=== PATIENT | female | born 1975 | race Caucasian/White ===

== ENCOUNTER 2017-06-05 04:54 | Emergency (ER) | payer MEDICAID ==
[2017-06-05] MEDS ORDERED: Ketorolac 60 MG/2 ML SDV IM ONE (05:05)
[2017-06-05 05:13] VITALS: BP 148/76
--- NOTE | 2017-06-05 05:13 | EDM.PDOC ---
ED HPI GENERAL MEDICAL PROBLEM - General Stated Complaint: BACK PAIN,TROUBLE BREATHING Time Seen by Provider: 06/05/17 04:54 Source of Information: Reports: Patient, EMS, Family History Limitations: Reports: Physical Impairment - History of Present Illness INITIAL COMMENTS - FREE TEXT/NARRATIVE: 41 years old smoker, h/o spino bifida, H/O Fibromyalgia, acute bronchitis, came to the ed due t left lower back pain after a coughing spell. No direct trauma. Pt is able to ambulate, walked independently to the bath room. No N/V/D. No chest pain, no other acute medical issues. Temp 98.t BP 148/76 Onset: Today Onset Date: 06/05/17 Onset Time: 02:00 Duration: Hour(s): Location: Reports: Back Quality: Reports: Ache, Burning, Dull, Throbbing Severity: Moderate Improves with: Reports: Cold Therapy, Rest Worsens with: Reports: Movement Context: Reports: Other (coughing spell.) Associated Symptoms: Reports: Cough Left Middle Back Pain Score (Numeric/FACES): 8 - Related Data Allergies Allergy/AdvReac Type Severity Reaction Status Date / Time No Known Allergies Allergy Verified 06/05/17 05:47 Home Meds: Home Meds Albuterol [Proventil HFA] 2 inhalation ORAL.INH ASDIRECTED PRN 04/03/14 [History ] Dicyclomine [Bentyl] 20 mg PO TID 04/03/14 [History] Fluticasone Propionate [Flonase] 2 inhalation NS DAILY 04/03/14 [History] Folic Acid 1 mg PO DAILY 04/03/14 [History] Hydrochlorothiazide 12.5 mg PO DAILY 04/03/14 [History] Ibuprofen [Advil] 600 mg PO ASDIRECTED PRN 04/03/14 [History] Loratadine [Claritin] 10 mg PO DAILY 04/03/14 [History] Metaxalone 800 mg PO TID 04/03/14 [History] Naratriptan [Amerge] 2.5 mg PO ASDIRECTED PRN 04/03/14 [History] Omeprazole [Prilosec] 20 mg PO BID 04/03/14 [History] carBAMazepine [TEGretol XR] 400 mg PO BEDTIME 04/03/14 [History] carBAMazepine [Tegretol XR] 200 mg PO DAILY 04/03/14 [History] Simvastatin [Zocor] 10 mg PO BEDTIME 04/04/14 [History] Benzonatate [Tessalon Perles] 100 mg PO TID 06/05/17 [History] Meloxicam [Meloxicam] 15 mg PO DAILY 06/05/17 [History] Orphenadrine [Norflex] 100 mg PO BID PRN #20 tab.er 06/05/17 [Rx] Prednisone [IJD: predniSONE] 20 mg PO WITHBREAKFAST 06/05/17 [History] SitaGLIPtin [Januvia] 100 mg PO DAILY 06/05/17 [History] Social & Family History - Alcohol Use Days Per Week of Alcohol Use: 0 ED ROS GENERAL - Review of Systems Review Of Systems: See Below Constitutional: Reports: No Symptoms HEENT: Reports: No Symptoms Respiratory: Reports: Cough (occ dry cough) Cardiovascular: Reports: No Symptoms Endocrine: Reports: No Symptoms GI/Abdominal: Reports: No Symptoms : Reports: No Symptoms Musculoskeletal: Reports: No Symptoms Skin: Reports: No Symptoms Neurological: Reports: Other (h/o spinobifida ) Psychiatric: Reports: No Symptoms Hematologic/Lymphatic: Reports: No Symptoms Immunologic: Reports: No Symptoms ED EXAM,LOWER BACK PAIN/INJURY - Physical Exam Exam: See Below Exam Limited By: Physical Impairment General Appearance: Alert, WD/WN, Mild Distress, Obese Eye Exam: Bilateral Eye: Normal Inspection Ears: Normal External Exam Nose: Normal Inspection, Normal Mucosa Throat/Mouth: Normal Inspection, Normal Lips Head: Atraumatic, Normocephalic Neck: Normal Inspection, Supple, Non-Tender Respiratory/Chest: No Respiratory Distress, Lungs Clear, Normal Breath Sounds, No Accessory Muscle Use, Chest Non-Tender, Other (occ dry cough) Cardiovascular: Normal Peripheral Pulses, Regular Rate, Rhythm, No Edema GI/Abdominal: Normal Bowel Sounds, Soft, Non-Tender, No Abnormal Bruit (Female) Exam: Deferred Rectal (Female) Exam: Deferred Back Exam: Normal Inspection, Full Range of Motion, Muscle Spasm, Paraspinal Tenderness (left lumbar ) Extremities: Normal Inspection, Normal Range of Motion, Non-Tender Neurological: Alert, Normal Mood/Affect, CN II-XII Intact, Normal Gait, Oriented x 3, Other (spinobifida) Psychiatric: Normal Affect, Depressed Mood Skin Exam: Warm, Dry, Intact, Normal Color, No Rash Lymphatic: No Adenopathy Course - Vital Signs Text/Narrative:: 41 years old smoker, h/o spino bifida, H/O Fibromyalgia, acute bronchitis, came to the ed due t left lower back pain after a coughing spell. No direct trauma. Pt is able to ambulate, walked independently to the bath room. No N/V/D. No chest pain, no other acute medical issues. Temp 98.t BP 148/76 PE: Obese. lefy lower back spasm, dry cough UA: neg Impression: Asthma, left lower back spasm Tx: Toradol, Norflex and a duoneb Reexam: Pt felt 70% better and requested to be discharged. PlaN; D/C with instructions Last Recorded V/S: Last Vital Signs Temp 36.7 C 06/05/17 05:00 Pulse 101 H 06/05/17 05:00 Resp 18 06/05/17 05:00 BP 148/76 H 06/05/17 05:00 Pulse Ox 100 06/05/17 05:00 - Orders/Labs/Meds Orders: Active Orders 24 hr Category Date Time Status RT Aerosol Therapy [RC] ASDIRECTED Care 06/05/17 05:29 Active Ice Therapy [OM.PC] Routine Oth 06/05/17 05:28 Ordered Labs: Laboratory Tests 06/05/17 Range/Units 05:40 Urine Color Yellow (YELLOW) Urine Appearance Clear (CLEAR) Urine pH 7.0 H (5.0-6.5) Ur Specific [place] 1.005 L (1.010-1.025) Urine Protein Negative (NEGATIVE) mg/dL Urine Glucose (UA) Normal (NEGATIVE) mg/dL Urine Ketones Negative (NEGATIVE) mg/dL Urine Occult Blood Negative (NEGATIVE) Urine Nitrite Negative (NEGATIVE) Urine Bilirubin Negative (NEGATIVE) Urine Urobilinogen Normal (NEGATIVE) mg/dL Ur Leukocyte Esterase Negative (NEGATIVE) Urine RBC 0-5 (0) Urine WBC 0-5 (0) Ur Squamous Epith Cells Few H (NS,R,O) Urine Bacteria Few H (NS) Meds: Medications Discontinued Medications Generic Name Dose Route Start Last Admin Trade Name Freq PRN Reason Stop Dose Admin Albuterol/Ipratropium 3 ml 06/05/17 05:28 06/05/17 05:38 Duoneb 3.0-0.5 Mg/3 Ml NEB 06/05/17 05:29 3 ml ONETIME ONE Administration Ketorolac Tromethamine 60 mg 06/05/17 05:05 06/05/17 05:26 Toradol IM 06/05/17 05:06 60 mg ONETIME ONE Administration Orphenadrine Citrate 60 mg 06/05/17 05:15 06/05/17 05:28 Norflex IM 60 mg Q12H GERMAN Administration Departure - Departure Time of Disposition: 06:00 Disposition: Home, Self-Care 01 Condition: Good Clinical Impression: Spasm of back muscles Asthma Qualifiers: Asthma severity: mild intermittent Asthma complication type: uncomplicated Qualified Code(s): J45.20 - Mild intermittent asthma, uncomplicated - Discharge Information Prescriptions: Orphenadrine [Norflex] 100 mg PO BID PRN #20 tab.er PRN Reason: back spasm Referrals: Adrian Mosqueda MD [Primary Care Provider] - Forms: ED Department Discharge Additional Instructions: Please take your current meds, please take norflex and motrin for back pain, please quit tobacco use, please follow up, come back to the ed if your symptoms get worse acutely. - My Orders Last 24 Hours: My Active Orders 06/05/17 05:28 Ice Therapy [OM.PC] Routine 06/05/17 05:29 RT Aerosol Therapy [RC] ASDIRECTED - Assessment/Plan Last 24 Hours: My Active Orders 06/05/17 05:28 Ice Therapy [OM.PC] Routine 06/05/17 05:29 RT Aerosol Therapy [RC] ASDIRECTED
[2017-06-05] MEDS ORDERED: Albuterol/Ipratropium 3.0-0.5 MG/3 ML Neb Soln NEB ONE (05:28)
== END 2017-06-05 06:25 | disposition home or self-care (01) ==
LOC: FB.ED 04:54
DX: M62.830 Muscle spasm of back (principal); J45.20 Mild intermittent asthma, uncomplicated; Z79.84 Long term (current) use of oral hypoglycemic drugs; Z79.899 Other long term (current) drug therapy
CPT/HCPCS: 81001; 96372; 99283; J1885; J2360; J7620

== ENCOUNTER 2018-03-21 07:12 | Day surgery (SDC) | payer MEDICAID ==
[2018-03-21] MEDS ORDERED: Lactated Ringers 1,000 ML IV SCH (07:15)
[2018-03-21] MEDS ORDERED: Sodium Chloride 0.9% 10 ML Syringe FLUSH PRN (07:15)
[2018-03-21] MEDS ORDERED: Propofol 200 MG/20 ML SDV IV ONE (08:30)
[2018-03-21] MEDS ORDERED: Midazolam 1 MG/ML 2 ML SDV IV ONE (08:30)
--- NOTE | 2018-03-21 09:20 | PCM.OPNOTE ---
- General Post-Op/Procedure Note Date of Surgery/Procedure: 03/21/18 Operative Procedure(s): c scope with bx Findings: rectal polypsx2 Pre Op Diagnosis: hx of colon polyps Post-Op Diagnosis: rectal polypsx2 Anesthesia Technique: MAC Primary Surgeon: Ajit Torres Anesthesia Provider: Linda Ham Pathology: rectal polyp Complications: None Condition: Good Free Text/Narrative:: see dictation
--- NOTE | 2018-03-21 09:37 | OR ---
DATE OF OPERATION: 03/21/2018 SURGEON: Ajit Torres MD PROCEDURES PERFORMED: Colonoscopy with cold forceps biopsy. PREOPERATIVE DIAGNOSIS: Personal history of colon polyps. POSTOPERATIVE DIAGNOSIS: Hyperplastic rectal polyps. INDICATIONS FOR PROCEDURE: This is a 42-year-old white female who presents for a followup colonoscopy. She has a personal history of adenomatous colon polyps. She was offered and accepted same. DESCRIPTION OF OPERATION: After an excellent IV sedation was administered, digital rectal exam was performed. No marked abnormality was noted. The flexible colonoscope was inserted and advanced to the cecum without difficulty. The prep was excellent. The following findings were noted. Ascending colon, unremarkable. Transverse colon, unremarkable. Descending colon, unremarkable. Sigmoid, unremarkable. Rectum, several small hyperplastic-appearing rectal polyps, biopsied with cold biopsy forceps and sent for permanent. Colon was deflated. Scope was removed. The patient tolerated the procedure well. Results by letter. /[id number] /YEFRI
[2018-03-21 10:58] VITALS: BP 108/74
== END 2018-03-21 10:38 | disposition home or self-care (01) ==
LOC: FB.SDS 07:12
PROVIDERS: ATTEND Surgery
DX: Z12.11 Encounter for screening for malignant neoplasm of colon (principal); K62.1 Rectal polyp; I10 Essential (primary) hypertension; E11.9 Type 2 diabetes mellitus without complications; F17.210 Nicotine dependence, cigarettes, uncomplicated; H90.3 Sensorineural hearing loss, bilateral; K21.9 Gastro-esophageal reflux disease without esophagitis; F32.9 Major depressive disorder, single episode, unspecified; F41.9 Anxiety disorder, unspecified; G47.33 Obstructive sleep apnea (adult) (pediatric); Z86.010 Personal history of colon polyps; Z79.84 Long term (current) use of oral hypoglycemic drugs; Z79.899 Other long term (current) drug therapy
CPT/HCPCS: 45380; 82962; 88305; J2250; J2704; J7120

== ENCOUNTER 2021-08-17 12:59 | Inpatient (IN) | payer MEDICAID ==
[2021-08-17] MEDS ORDERED: Ondansetron 4 MG/2 ML SDV IVPUSH ONE (14:21)
[2021-08-17] MEDS ORDERED: Ketorolac 30 MG/ML SDV IVPUSH ONE (14:23)
[2021-08-17] MEDS ORDERED: Sodium Chloride 0.9% 1,000 ML IV ONE ×2 (14:23)
--- NOTE | 2021-08-17 16:49 | EDM.PDOC ---
ED HPI GENERAL MEDICAL PROBLEM - General Chief Complaint: Abdominal Pain Stated Complaint: R SIDE PAIN /L ARM NUMBNESS Time Seen by Provider: 08/17/21 13:20 Source of Information: Reports: Patient History Limitations: Reports: No Limitations - History of Present Illness INITIAL COMMENTS - FREE TEXT/NARRATIVE: c/o flu-like sxs x 1w pt lives with 22 yo dtr, both had COVID test done in clinic parking lot 4d ago, dtr positive, pt neg, altho pt is positive today pt works from home, has not worked in past 4d denies pain except right flank poor appetite, cough and fever, malaise, no myalgias, no FREITAS slight nausea at home, none now Right Abdomen Pain Score (Numeric/FACES): 7 - Related Data Allergies Allergy/AdvReac Type Severity Reaction Status Date / Time No Known Allergies Allergy Verified 08/17/21 13:18 Home Meds: Home Meds Albuterol [Proventil HFA] 2 inhalation INH Q4H PRN 04/03/14 [History] Dicyclomine [Bentyl] 20 mg PO TID 04/03/14 [History] Folic Acid 800 mcg PO DAILY 04/03/14 [History] Omeprazole [Prilosec] 20 mg PO BID 04/03/14 [History] carBAMazepine [TEGretol XR] 400 mg PO BEDTIME 04/03/14 [History] carBAMazepine [Tegretol XR] 200 mg PO DAILY 04/03/14 [History] hydroCHLOROthiazide [Hydrochlorothiazide] 25 mg PO DAILY 04/03/14 [History] Simvastatin [Zocor] 10 mg PO BEDTIME 04/04/14 [History] Cetirizine [ZyrTEC] 10 mg PO DAILY 03/20/18 [History] Pregabalin [Lyrica] 225 mg PO BID 03/20/18 [History] Budesonide/Formoterol Fumarate [Symbicort 160-4.5 Mcg Inhaler] 2 puff INH BID 08/17/21 [History] Tiotropium Beggs [Spiriva Respimat] 2 puff INH DAILY 08/17/21 [History] glipiZIDE [Glucotrol XL] 5 mg PO DAILY 08/17/21 [History] methocarbamoL [Methocarbamol] 500 mg PO TID 08/17/21 [History] Past Medical History HEENT History: Reports: Hard of Hearing, Impaired Vision Cardiovascular History: Reports: Hypertension Respiratory History: Reports: Bronchitis, Recurrent, Sleep Apnea Gastrointestinal History: Reports: Colon Polyp, GERD, Irritable Bowel Syndrome SUPPLY ASSISTANT History: Reports: Other SUPPLY ASSISTANT History: II PARA II Musculoskeletal History: Reports: Arthritis, Back Pain, Chronic, Fibromyalgia Neurological History: Reports: Headaches, Chronic, Seizure, Other (See Below) Other Neuro History: SPINA BIFIDA Psychiatric History: Reports: Anxiety, Depression Endocrine/Metabolic History: Reports: Diabetes, Type II Hematologic History: Reports: None Immunologic History: Reports: None Oncologic (Cancer) History: Reports: None Dermatologic History: Reports: None - Infectious Disease History Infectious Disease History: Reports: Chicken Pox - Past Surgical History HEENT Surgical History: Reports: Myringotomy w Tube(s), Naso-Sinus Surgery, Tonsillectomy GI Surgical History: Reports: Appendectomy, Colonoscopy Other GI Surgeries/Procedures: STATES HAS HAD SEVERAL COLONOSCOPIES Female Surgical History: Reports: Section, Hysterectomy Other Female Surgeries/Procedures: VAG HYST Musculoskeletal Surgical History: Reports: Carpal Tunnel, Other (See Below) Other Musculoskeletal Surgeries/Procedures:: LEFT BUNIONECTOMY Social & Family History - Family History GI: Reports: Colon Polyps Other GI Family History: FATHER WITH COLON POLYPS - Tobacco Use Tobacco Use Status *Q: Current Every Day Tobacco User Years of Tobacco use: 30 Packs/Tins Daily: 0.5 - Caffeine Use Caffeine Use: Reports: Coffee - Recreational Drug Use Recreational Drug Use: No ED ROS GENERAL - Review of Systems Review Of Systems: See Below Constitutional: Reports: Fever, Weakness, Decreased Appetite. Denies: Night Sweats, Diaphoresis HEENT: Reports: No Symptoms Respiratory: Reports: Shortness of Breath, Cough Cardiovascular: Reports: No Symptoms Endocrine: Reports: No Symptoms GI/Abdominal: Reports: No Symptoms : Reports: No Symptoms Musculoskeletal: Reports: No Symptoms Skin: Reports: No Symptoms Neurological: Reports: No Symptoms Psychiatric: Reports: No Symptoms Hematologic/Lymphatic: Reports: No Symptoms Immunologic: Reports: No Symptoms ED EXAM, GENERAL - Physical Exam Exam: See Below Exam Limited By: No Limitations General Appearance: Alert, WD/WN, Other (nontoxic, appears tired) Eye Exam: Bilateral Eye: EOMI, PERRL Ears: Hearing Grossly Normal Nose: Normal Inspection Throat/Mouth: Normal Inspection, Normal Lips, Normal Teeth, Normal Gums, Normal Oropharynx, Normal Voice, No Airway Compromise Head: Atraumatic, Normocephalic Neck: Normal Inspection, Supple, Non-Tender, Full Range of Motion. No: Lymphadenopathy (R), Lymphadenopathy (L) Respiratory/Chest: No Respiratory Distress, Lungs Clear, Normal Breath Sounds, No Accessory Muscle Use Cardiovascular: Regular Rate, Rhythm, No Edema, No JVD, No Murmur GI/Abdominal: Soft, Non-Tender, No Distention Back Exam: Normal Inspection, Full Range of Motion. No: CVA Tenderness (R), CVA Tenderness (L) Extremities: Normal Inspection, Non-Tender, No Pedal Edema Neurological: Alert, Oriented, CN II-XII Intact, Normal Cognition, No Motor/Sensory Deficits Psychiatric: Normal Affect, Normal Mood Skin Exam: Warm, Dry, Intact, Normal Color, No Rash Lymphatic: No Adenopathy Course - Vital Signs Last Recorded V/S: Last Vital Signs Temp 36.8 C 08/17/21 13:18 Pulse 95 08/17/21 13:18 Resp 16 08/17/21 13:18 BP 143/80 H 08/17/21 13:18 Pulse Ox 96 08/17/21 13:18 - Orders/Labs/Meds Orders: Active Orders 24 hr Category Date Time Status Admission Status [Patient Status] [ADT] Routine ADT 08/17/21 21:41 Ordered Abdomen 1V Flat [CR] Stat Exams 08/17/21 14:25 Taken CTA Runoff [CT] Stat Exams 08/17/21 17:45 Taken Chest 1V Frontal [CR] Stat Exams 08/17/21 14:24 Taken Sodium Chloride 0.9% [Normal Saline] 1,000 ml Med 08/17/21 21:45 Ordered IV ASDIRECTED Medication Orders Sodium Chloride (Normal Saline) 1,000 mls @ 250 mls/hr IV ASDIRECTED GERMAN Last Admin: 08/17/21 22:08 Dose: 250 mls/hr Documented by: BENJAMIN Labs: Laboratory Tests 08/17/21 08/17/21 08/17/21 Range/Units 14:16 15:15 15:15 WBC 14.3 H (3.0-10.3) x10-3/uL RBC 4.91 (3.60-5.20) x10(6)uL Hgb 14.5 (11.4-15.5) g/dL Hct 46.3 (34.2-48.2) % MCV 94.2 (76.7-100.5) fL MCH 29.4 (23.9-33.9) pg MCHC 31.3 L (31.9-34.8) g/dL RDW 12.8 (12.3-16.5) % Plt Count 282 (151-488) x10(3)uL MPV 7.8 (7.1-12.4) fL Neut % (Auto) 73.7 (30.8-76.2) % Lymph % (Auto) 15.2 L (18.4-52.1) % [place] % (Auto) 9.8 (4.4-15.7) % Eos % (Auto) 0.1 L (0.6-8.1) % Baso % (Auto) 1.2 (0.2-1.5) % Neut # (Auto) 10.5 H (1.5-6.3) x10-3/uL Lymph # (Auto) 2.2 (1.0-4.4) x10-3/uL [place] # (Auto) 1.4 H (0.3-1.0) x10-3/uL Eos # (Auto) 0.0 (0.0-0.8) x10-3/uL Baso # (Auto) 0.2 H (0.0-0.1) x10-3/uL PT (9.0-11.1) sec INR (1.00-1.24) APTT (24.4-33.2) SECONDS Sodium 135 (135-145) mmol/L Potassium 4.5 (3.5-5.3) mmol/L Chloride 96 L (100-110) mmol/L Carbon Dioxide 24 (21-32) mmol/L BUN 11 (7-18) mg/dL Creatinine 1.0 (0.55-1.02) mg/dL Est Cr Clr Drug Dosing 63.25 mL/min Estimated GFR (MDRD) 60 (>60) BUN/Creatinine Ratio 11.0 (9-20) Glucose 114 (80-116) mg/dL Calcium 8.3 L (8.6-10.2) mg/dL Total Bilirubin 0.7 (0.1-1.3) mg/dL AST 44 H (5-25) IU/L ALT 31 (12-36) U/L Alkaline Phosphatase 89 (56-112) IU/L C-Reactive Protein (0.5-0.9) mg/dL Total Protein 7.4 (6.0-8.0) g/dL Albumin 3.6 (3.5-5.2) g/dL Globulin 3.8 g/dL Albumin/Globulin Ratio 1.0 Urine Color (YELLOW) Urine Appearance (CLEAR) Urine pH (5.0-6.5) Ur Specific [place] (1.010-1.025) Urine Protein (NEGATIVE) mg/dL Urine Glucose (UA) (NORMAL) mg/dL Urine Ketones (NEGATIVE) mg/dL Urine Occult Blood (NEGATIVE) Urine Nitrite (NEGATIVE) Urine Bilirubin (NEGATIVE) Urine Urobilinogen (NEGATIVE) mg/dL Ur Leukocyte Esterase (NEGATIVE) Urine RBC (0-5) Urine WBC (0-5) Ur Squamous Epith Cells (NS,R,O) Urine Bacteria (NS) Urine Mucus (NS) SARS-CoV-2 RNA (TERESA) Positive H (NEGATIVE) 08/17/21 08/17/21 08/17/21 Range/Units 15:15 16:07 21:25 WBC (3.0-10.3) x10-3/uL RBC (3.60-5.20) x10(6)uL Hgb (11.4-15.5) g/dL Hct (34.2-48.2) % MCV (76.7-100.5) fL MCH (23.9-33.9) pg MCHC (31.9-34.8) g/dL RDW (12.3-16.5) % Plt Count (151-488) x10(3)uL MPV (7.1-12.4) fL Neut % (Auto) (30.8-76.2) % Lymph % (Auto) (18.4-52.1) % [place] % (Auto) (4.4-15.7) % Eos % (Auto) (0.6-8.1) % Baso % (Auto) (0.2-1.5) % Neut # (Auto) (1.5-6.3) x10-3/uL Lymph # (Auto) (1.0-4.4) x10-3/uL [place] # (Auto) (0.3-1.0) x10-3/uL Eos # (Auto) (0.0-0.8) x10-3/uL Baso # (Auto) (0.0-0.1) x10-3/uL PT 12.8 H (9.0-11.1) sec INR 1.20 (1.00-1.24) APTT 24.4 (24.4-33.2) SECONDS Sodium (135-145) mmol/L Potassium (3.5-5.3) mmol/L Chloride (100-110) mmol/L Carbon Dioxide (21-32) mmol/L BUN (7-18) mg/dL Creatinine (0.55-1.02) mg/dL Est Cr Clr Drug Dosing mL/min Estimated GFR (MDRD) (>60) BUN/Creatinine Ratio (9-20) Glucose (80-116) mg/dL Calcium (8.6-10.2) mg/dL Total Bilirubin (0.1-1.3) mg/dL AST (5-25) IU/L ALT (12-36) U/L Alkaline Phosphatase (56-112) IU/L C-Reactive Protein 3.7 H* (0.5-0.9) mg/dL Total Protein (6.0-8.0) g/dL Albumin (3.5-5.2) g/dL Globulin g/dL Albumin/Globulin Ratio Urine Color Yellow (YELLOW) Urine Appearance Clear (CLEAR) Urine pH 7.0 H (5.0-6.5) Ur Specific [place] 1.010 (1.010-1.025) Urine Protein Negative (NEGATIVE) mg/dL Urine Glucose (UA) Normal (NORMAL) mg/dL Urine Ketones Negative (NEGATIVE) mg/dL Urine Occult Blood Negative (NEGATIVE) Urine Nitrite Negative (NEGATIVE) Urine Bilirubin Negative (NEGATIVE) Urine Urobilinogen Normal (NEGATIVE) mg/dL Ur Leukocyte Esterase Negative (NEGATIVE) Urine RBC 0-5 (0-5) Urine WBC 0-5 (0-5) Ur Squamous Epith Cells Few H (NS,R,O) Urine Bacteria Few H (NS) Urine Mucus Occasional H (NS) SARS-CoV-2 RNA (TERESA) (NEGATIVE) Meds: Medications Generic Name Dose Route Start Last Admin Trade Name Jose PRN Reason Stop Dose Admin Sodium Chloride 1,000 mls @ 250 mls/hr 08/17/21 21:45 08/17/21 22:08 Normal Saline IV 250 mls/hr ASDIRECTED GERMAN Administration Discontinued Medications Generic Name Dose Route Start Last Admin Trade Name Jose PRN Reason Stop Dose Admin Acetaminophen 1,000 mg 08/17/21 17:52 08/17/21 18:26 Acetaminophen 500 Mg Tab PO 08/17/21 17:53 1,000 mg ONETIME ONE Administration Hydromorphone HCl 0.5 mg 08/17/21 21:39 08/17/21 22:31 Hydromorphone 2 Mg/Ml Sdv IVPUSH 08/17/21 21:40 0.5 mg ONETIME ONE Administration Sodium Chloride 1,000 mls @ 999 mls/hr 08/17/21 14:23 08/17/21 14:30 Normal Saline IV 08/17/21 15:23 999 mls/hr .BOLUS ONE Administration Sodium Chloride 1,000 mls @ 999 mls/hr 08/17/21 14:23 08/17/21 15:47 Normal Saline IV 08/17/21 15:23 999 mls/hr .BOLUS ONE Administration Iopamidol 150 ml 08/17/21 18:20 08/17/21 18:52 Iopamidol 755 Mg/Ml 150 Ml Bottle IV 08/17/21 18:21 150 ml ONETIME ONE Administration Ketorolac Tromethamine 30 mg 08/17/21 14:23 08/17/21 14:30 Ketorolac 30 Mg/Ml Sdv IVPUSH 08/17/21 14:24 30 mg ONETIME ONE Administration Metoclopramide HCl 10 mg 08/17/21 17:52 08/17/21 18:26 Metoclopramide 10 Mg/2 Ml Sdv IVPUSH 08/17/21 17:53 10 mg ONETIME ONE Administration Morphine Sulfate 2 mg 08/17/21 17:51 08/17/21 18:26 Morphine 2 Mg/Ml Syringe IVPUSH 08/17/21 17:52 2 mg ONETIME ONE Administration Ondansetron HCl 4 mg 08/17/21 14:21 11/08/21 14:30 Ondansetron 4 Mg/2 Ml Sdv IVPUSH 08/17/21 14:22 4 mg ONETIME ONE Administration - Re-Assessments/Exams Free Text/Narrative Re-Assessment/Exam: 08/17/21 23:50 CT of abd and pelvis with LE run off obtained d/t ongoing pain in her R flank, pain come back after Toradol 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 sp) with nephrology who recommended anticoagulation during inflammatory stage of COVID as pt is COVID possible, he said pt may need interventional radiology will avoid a 2nd dye load tonight and plan on CTA of chest/abd/pelvis tomorrow looking for any reversible thrombosis Dr Yoder was reassured that renal function was normal pt quite reluctant to be admitted altho strongly encouraged to do so and did agree, dx and tx d/w daughter WBC 14k c/w pain, no evidence of secondary infection will hydrate overnight and give 2nd dye load in AM to examine arteries (rather than veins), no DVTs per radiologist Departure - Departure Time of Disposition: 23:53 Disposition: Refer to Observation Condition: Good Clinical Impression: Pneumonia due to COVID-19 virus, Renal infarct, Splenic infarct - Discharge Information *PRESCRIPTION DRUG MONITORING PROGRAM REVIEWED*: Not Applicable *COPY OF PRESCRIPTION DRUG MONITORING REPORT IN PATIENT CASSIA: Not Applicable Referrals: Adrian Mosqueda MD [Primary Care Provider] - Forms: ED Department Discharge Sepsis Event Note (ED) - Evaluation Sepsis Screening Result: No Definite Risk - Focused Exam Vital Signs: Vital Signs Temp Pulse Resp BP Pulse Ox 08/17/21 13:18 36.8 C 95 16 143/80 H 96 - My Orders Last 24 Hours: My Active Orders 08/17/21 14:24 Chest 1V Frontal [CR] Stat 08/17/21 14:25 Abdomen 1V Flat [CR] Stat 08/17/21 17:45 CTA Runoff [CT] Stat 08/17/21 21:41 Admission Status [Patient Status] [ADT] Routine 08/17/21 21:45 Sodium Chloride 0.9% [Normal Saline] 1,000 ml IV ASDIRECTED - Assessment/Plan Last 24 Hours: My Active Orders 08/17/21 14:24 Chest 1V Frontal [CR] Stat 08/17/21 14:25 Abdomen 1V Flat [CR] Stat 08/17/21 17:45 CTA Runoff [CT] Stat 08/17/21 21:41 Admission Status [Patient Status] [ADT] Routine 08/17/21 21:45 Sodium Chloride 0.9% [Normal Saline] 1,000 ml IV ASDIRECTED
[2021-08-17] MEDS ORDERED: Morphine 2 MG/ML SYRINGE IVPUSH ONE (17:51)
[2021-08-17] MEDS ORDERED: Metoclopramide 10 MG/2 ML SDV IVPUSH ONE (17:52)
[2021-08-17] MEDS ORDERED: Acetaminophen 500 MG Tab PO ONE (17:52)
[2021-08-17] MEDS ORDERED: Iopamidol 755 MG/ML 150 ML Bottle IV ONE (18:20)
[2021-08-17] MEDS ORDERED: HYDROmorphone 2 MG/ML SDV IVPUSH ONE (21:39)
[2021-08-17] MEDS: Sodium Chloride 0.9% 1,000 ML IV SCH (22:08)
[2021-08-18] MEDS ORDERED: Acetaminophen 500 MG Tab PO SCH (00:15)
[2021-08-18] MEDS ORDERED: Enoxaparin 120 MG/0.8 ML Syringe SUBCUT SCH (00:15)
[2021-08-18] MEDS: Ketorolac 30 MG/ML SDV IVPUSH SCH ×5 (01:38→17:31)
[2021-08-18] MEDS: DICYCLOMINE 20 MG PO SCH ×4 (01:40→20:22)
[2021-08-18] MEDS: SYMBICORT INH SCH ×4 (01:40→20:22)
[2021-08-18] MEDS ORDERED: CARBAMAZEPINE 200 MG PO SCH (02:00)
[2021-08-18] MEDS: carBAMazepine 200 MG TAB.ER PO SCH ×3 (02:00→20:26)
[2021-08-18] MEDS: Sodium Chloride 0.9% 1,000 ML IV SCH ×4 (02:08→15:44)
[2021-08-18] MEDS ORDERED: Ketorolac 30 MG/ML SDV ONE (06:13)
[2021-08-18] MEDS ORDERED: Albuterol 8 GM Inhaler INH PRN ×2 (07:34)
[2021-08-18] MEDS ORDERED: Sodium Chloride 0.9% 1,000 ML IV SCH (07:45)
[2021-08-18] MEDS ORDERED: Potassium Chloride 20 MEQ Tab.ER PO ONE (07:46)
--- NOTE | 2021-08-18 08:41 | PCM.HP.2 ---
H&P History of Present Illness - General Date of Service: 08/18/21 Admit Problem/Dx: Admission Diagnosis/Problem Admission Diagnosis/Problem Coagulation disorder Source of Information: Patient, Old Records, Provider - History of Present Illness Initial Comments - Free Text/Narative: 46-year-old lady was told to come to the emergency department after contacting her primary care doctor with symptoms that included right flank pain. She had a 5 to 6-day history of flulike symptoms and including fever, chills, nausea, vomiting, upper respiratory congestion. She lives with her daughter and her and her daughter were both tested for COVID-19 and she was negative and her daughter was positive on , 08/13/2021. However, on admission to the emergency department on 08/17/2021 she tested positive for COVID-19. 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 Consultation with nephrology by emergency room yielded recommendation for anticoagulation with Lovenox. Patient admitted to observation and will have second CT this morning to delineate need for transfer for acute care. Right Abdomen Pain Score (Numeric/FACES): 7 - Related Data Allergies/Adverse Reactions: Allergies Allergy/AdvReac Type Severity Reaction Status Date / Time No Known Allergies Allergy Verified 08/17/21 13:18 Home Medications: Home Meds Albuterol [Proventil HFA] 2 inhalation INH Q4H PRN 04/03/14 [History] Dicyclomine [Bentyl] 20 mg PO TID 04/03/14 [History] Folic Acid 800 mcg PO DAILY 04/03/14 [History] Omeprazole [Prilosec] 20 mg PO BID 04/03/14 [History] carBAMazepine [TEGretol XR] 400 mg PO BEDTIME 04/03/14 [History] carBAMazepine [Tegretol XR] 200 mg PO DAILY 04/03/14 [History] hydroCHLOROthiazide [Hydrochlorothiazide] 25 mg PO DAILY 04/03/14 [History] Simvastatin [Zocor] 10 mg PO BEDTIME 04/04/14 [History] Cetirizine [ZyrTEC] 10 mg PO DAILY 03/20/18 [History] Pregabalin [Lyrica] 225 mg PO BID 03/20/18 [History] Budesonide/Formoterol Fumarate [Symbicort 160-4.5 Mcg Inhaler] 2 puff INH BID 08/17/21 [History] Tiotropium Michie [Spiriva Respimat] 2 puff INH DAILY 08/17/21 [History] glipiZIDE [Glucotrol XL] 5 mg PO DAILY 08/17/21 [History] methocarbamoL [Methocarbamol] 500 mg PO TID 08/17/21 [History] Past Medical History HEENT History: Reports: Hard of Hearing, Impaired Vision Cardiovascular History: Reports: Hypertension Respiratory History: Reports: Bronchitis, Recurrent, Sleep Apnea Gastrointestinal History: Reports: Colon Polyp, GERD, Irritable Bowel Syndrome 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 Psychiatric History: Reports: Anxiety, Depression Endocrine/Metabolic History: Reports: Diabetes, Type II Hematologic History: Reports: None Immunologic History: Reports: None Oncologic (Cancer) History: Reports: None Dermatologic History: Reports: None - Infectious Disease History Infectious Disease History: Reports: Chicken Pox, Novel Coronavirus - Past Surgical History HEENT Surgical History: Reports: Myringotomy w Tube(s), Naso-Sinus Surgery, Tonsillectomy GI Surgical History: Reports: Appendectomy, Colonoscopy Other GI Surgeries/Procedures: Several colonoscopies. Female Surgical History: Reports: Section, Hysterectomy Other Female Surgeries/Procedures: Vaginal hysterectomy. Musculoskeletal Surgical History: Reports: Carpal Tunnel, Other (See Below) Other Musculoskeletal Surgeries/Procedures:: Left bunionectomy. Social & Family History - Family History GI: Reports: Colon Polyps Other GI Family History: FATHER WITH COLON POLYPS - Tobacco Use Tobacco Use Status *Q: Current Every Day Tobacco User Years of Tobacco use: 30 Packs/Tins Daily: 0.5 - Caffeine Use Caffeine Use: Reports: Coffee - Recreational Drug Use Recreational Drug Use: No H&P Review of Systems - Review of Systems: Review Of Systems: See Below General: Reports: Fever, Chills, Weakness HEENT: Reports: Headaches Pulmonary: Reports: Cough Cardiovascular: Reports: No Symptoms Gastrointestinal: Reports: Abdominal Pain Genitourinary: Reports: No Symptoms Musculoskeletal: Reports: No Symptoms Skin: Reports: No Symptoms Psychiatric: Reports: No Symptoms Neurological: Reports: Pre-Existing Deficit Hematologic/Lymphatic: Reports: No Symptoms Immunologic: Reports: No Symptoms Exam - Exam Exam: See Below - Vital Signs Vital Signs: Last Vital Signs Temp 36.2 C 08/18/21 06:00 Pulse 91 08/18/21 06:00 Resp 20 08/18/21 06:00 BP 150/85 H 08/18/21 06:00 Pulse Ox 95 08/18/21 06:00 Weight: 114.305 kg - Exam Quality Assessment: Supplemental Oxygen, DVT Prophylaxis General: Alert, Oriented, Cooperative HEENT: EOMI Neck: Supple Lungs: Crackles Cardiovascular: Regular Rate, Regular Rhythm. No: Systolic Murmur GI/Abdominal Exam: Normal Bowel Sounds, Tender Back Exam: Normal Inspection Extremities: Pedal Edema Peripheral Pulses: 2+: Radial (L), Radial (R) Skin: Warm, Dry Neurological: Cranial Nerves Intact Neuro Extensive - Mental Status: Alert, Oriented x3 Psychiatric: Alert, Other (Mildly flat affect) - Patient Data Lab Results Last 24 hrs: Laboratory Results - last 24 hr 08/17/21 08/17/21 08/17/21 Range/Units 14:16 15:15 15:15 WBC 14.3 H (3.0-10.3) x10-3/uL RBC 4.91 (3.60-5.20) x10(6)uL Hgb 14.5 (11.4-15.5) g/dL Hct 46.3 (34.2-48.2) % MCV 94.2 (76.7-100.5) fL MCH 29.4 (23.9-33.9) pg MCHC 31.3 L (31.9-34.8) g/dL RDW 12.8 (12.3-16.5) % Plt Count 282 (151-488) x10(3)uL MPV 7.8 (7.1-12.4) fL Neut % (Auto) 73.7 (30.8-76.2) % Lymph % (Auto) 15.2 L (18.4-52.1) % [place] % (Auto) 9.8 (4.4-15.7) % Eos % (Auto) 0.1 L (0.6-8.1) % Baso % (Auto) 1.2 (0.2-1.5) % Neut # (Auto) 10.5 H (1.5-6.3) x10-3/uL Lymph # (Auto) 2.2 (1.0-4.4) x10-3/uL [place] # (Auto) 1.4 H (0.3-1.0) x10-3/uL Eos # (Auto) 0.0 (0.0-0.8) x10-3/uL Baso # (Auto) 0.2 H (0.0-0.1) x10-3/uL Add Manual Diff Neutrophils % (Manual) (46-82) % Lymphocytes % (Manual) (13-37) % Monocytes % (Manual) (4-12) % PT (9.0-11.1) sec INR (1.00-1.24) APTT (24.4-33.2) SECONDS Sodium 135 (135-145) mmol/L Potassium 4.5 (3.5-5.3) mmol/L Chloride 96 L (100-110) mmol/L Carbon Dioxide 24 (21-32) mmol/L BUN 11 (7-18) mg/dL Creatinine 1.0 (0.55-1.02) mg/dL Est Cr Clr Drug Dosing 63.25 mL/min Estimated GFR (MDRD) 60 (>60) BUN/Creatinine Ratio 11.0 (9-20) Glucose 114 (80-116) mg/dL Calcium 8.3 L (8.6-10.2) mg/dL Magnesium (1.8-2.5) mg/dL Total Bilirubin 0.7 (0.1-1.3) mg/dL AST 44 H (5-25) IU/L ALT 31 (12-36) U/L Alkaline Phosphatase 89 (56-112) IU/L C-Reactive Protein (0.5-0.9) mg/dL Total Protein 7.4 (6.0-8.0) g/dL Albumin 3.6 (3.5-5.2) g/dL Globulin 3.8 g/dL Albumin/Globulin Ratio 1.0 Urine Color (YELLOW) Urine Appearance (CLEAR) Urine pH (5.0-6.5) Ur Specific [place] (1.010-1.025) Urine Protein (NEGATIVE) mg/dL Urine Glucose (UA) (NORMAL) mg/dL Urine Ketones (NEGATIVE) mg/dL Urine Occult Blood (NEGATIVE) Urine Nitrite (NEGATIVE) Urine Bilirubin (NEGATIVE) Urine Urobilinogen (NEGATIVE) mg/dL Ur Leukocyte Esterase (NEGATIVE) Urine RBC (0-5) Urine WBC (0-5) Ur Squamous Epith Cells (NS,R,O) Urine Bacteria (NS) Urine Mucus (NS) SARS-CoV-2 RNA (TERESA) Positive H (NEGATIVE) 08/17/21 08/17/21 08/17/21 Range/Units 15:15 16:07 21:25 WBC (3.0-10.3) x10-3/uL RBC (3.60-5.20) x10(6)uL Hgb (11.4-15.5) g/dL Hct (34.2-48.2) % MCV (76.7-100.5) fL MCH (23.9-33.9) pg MCHC (31.9-34.8) g/dL RDW (12.3-16.5) % Plt Count (151-488) x10(3)uL MPV (7.1-12.4) fL Neut % (Auto) (30.8-76.2) % Lymph % (Auto) (18.4-52.1) % [place] % (Auto) (4.4-15.7) % Eos % (Auto) (0.6-8.1) % Baso % (Auto) (0.2-1.5) % Neut # (Auto) (1.5-6.3) x10-3/uL Lymph # (Auto) (1.0-4.4) x10-3/uL [place] # (Auto) (0.3-1.0) x10-3/uL Eos # (Auto) (0.0-0.8) x10-3/uL Baso # (Auto) (0.0-0.1) x10-3/uL Add Manual Diff Neutrophils % (Manual) (46-82) % Lymphocytes % (Manual) (13-37) % Monocytes % (Manual) (4-12) % PT 12.8 H (9.0-11.1) sec INR 1.20 (1.00-1.24) APTT 24.4 (24.4-33.2) SECONDS Sodium (135-145) mmol/L Potassium (3.5-5.3) mmol/L Chloride (100-110) mmol/L Carbon Dioxide (21-32) mmol/L BUN (7-18) mg/dL Creatinine (0.55-1.02) mg/dL Est Cr Clr Drug Dosing mL/min Estimated GFR (MDRD) (>60) BUN/Creatinine Ratio (9-20) Glucose (80-116) mg/dL Calcium (8.6-10.2) mg/dL Magnesium (1.8-2.5) mg/dL Total Bilirubin (0.1-1.3) mg/dL AST (5-25) IU/L ALT (12-36) U/L Alkaline Phosphatase (56-112) IU/L C-Reactive Protein 3.7 H* (0.5-0.9) mg/dL Total Protein (6.0-8.0) g/dL Albumin (3.5-5.2) g/dL Globulin g/dL Albumin/Globulin Ratio Urine Color Yellow (YELLOW) Urine Appearance Clear (CLEAR) Urine pH 7.0 H (5.0-6.5) Ur Specific [place] 1.010 (1.010-1.025) Urine Protein Negative (NEGATIVE) mg/dL Urine Glucose (UA) Normal (NORMAL) mg/dL Urine Ketones Negative (NEGATIVE) mg/dL Urine Occult Blood Negative (NEGATIVE) Urine Nitrite Negative (NEGATIVE) Urine Bilirubin Negative (NEGATIVE) Urine Urobilinogen Normal (NEGATIVE) mg/dL Ur Leukocyte Esterase Negative (NEGATIVE) Urine RBC 0-5 (0-5) Urine WBC 0-5 (0-5) Ur Squamous Epith Cells Few H (NS,R,O) Urine Bacteria Few H (NS) Urine Mucus Occasional H (NS) SARS-CoV-2 RNA (TERESA) (NEGATIVE) 08/18/21 08/18/21 08/18/21 Range/Units 06:30 06:30 06:30 WBC 10.2 (3.0-10.3) x10-3/uL RBC 4.58 (3.60-5.20) x10(6)uL Hgb 14.5 (11.4-15.5) g/dL Hct 42.2 (34.2-48.2) % MCV 92.2 (76.7-100.5) fL MCH 31.8 (23.9-33.9) pg MCHC 34.4 (31.9-34.8) g/dL RDW 12.6 (12.3-16.5) % Plt Count 257 (151-488) x10(3)uL MPV 7.7 (7.1-12.4) fL Neut % (Auto) (30.8-76.2) % Lymph % (Auto) (18.4-52.1) % [place] % (Auto) (4.4-15.7) % Eos % (Auto) (0.6-8.1) % Baso % (Auto) (0.2-1.5) % Neut # (Auto) (1.5-6.3) x10-3/uL Lymph # (Auto) (1.0-4.4) x10-3/uL [place] # (Auto) (0.3-1.0) x10-3/uL Eos # (Auto) (0.0-0.8) x10-3/uL Baso # (Auto) (0.0-0.1) x10-3/uL Add Manual Diff Yes Neutrophils % (Manual) 74 (46-82) % Lymphocytes % (Manual) 20 (13-37) % Monocytes % (Manual) 6 (4-12) % PT (9.0-11.1) sec INR (1.00-1.24) APTT (24.4-33.2) SECONDS Sodium 137 (135-145) mmol/L Potassium 3.0 L D (3.5-5.3) mmol/L Chloride 103 D (100-110) mmol/L Carbon Dioxide 24 (21-32) mmol/L BUN 6 L (7-18) mg/dL Creatinine 1.0 (0.55-1.02) mg/dL Est Cr Clr Drug Dosing 63.25 mL/min Estimated GFR (MDRD) 60 (>60) BUN/Creatinine Ratio 6.0 L (9-20) Glucose 121 H (80-116) mg/dL Calcium 7.2 L (8.6-10.2) mg/dL Magnesium 1.9 (1.8-2.5) mg/dL Total Bilirubin (0.1-1.3) mg/dL AST (5-25) IU/L ALT (12-36) U/L Alkaline Phosphatase (56-112) IU/L C-Reactive Protein (0.5-0.9) mg/dL Total Protein (6.0-8.0) g/dL Albumin (3.5-5.2) g/dL Globulin g/dL Albumin/Globulin Ratio Urine Color (YELLOW) Urine Appearance (CLEAR) Urine pH (5.0-6.5) Ur Specific [place] (1.010-1.025) Urine Protein (NEGATIVE) mg/dL Urine Glucose (UA) (NORMAL) mg/dL Urine Ketones (NEGATIVE) mg/dL Urine Occult Blood (NEGATIVE) Urine Nitrite (NEGATIVE) Urine Bilirubin (NEGATIVE) Urine Urobilinogen (NEGATIVE) mg/dL Ur Leukocyte Esterase (NEGATIVE) Urine RBC (0-5) Urine WBC (0-5) Ur Squamous Epith Cells (NS,R,O) Urine Bacteria (NS) Urine Mucus (NS) SARS-CoV-2 RNA (TERESA) (NEGATIVE) Result Diagrams: 08/18/21 06:30 08/18/21 06:30 Sepsis Event Note - Evaluation Sepsis Screening Result: No Definite Risk - Focused Exam Vital Signs: Vital Signs Temp Temp Pulse Resp BP Pulse Ox 08/18/21 06:00 36.2 C 91 20 150/85 H 95 08/17/21 23:40 37.2 C 95 16 147/88 H 91 L - Problem List (1) Spina bifida SNOMED Code(s): 70822321 ICD Code: Q05.9 - SPINA BIFIDA, UNSPECIFIED Status: Chronic Current Visit: Yes (2) Essential hypertension SNOMED Code(s): 18417072 ICD Code: I10 - ESSENTIAL (PRIMARY) HYPERTENSION Status: Chronic Current Visit: Yes (3) Diabetes mellitus type 2 in obese SNOMED Code(s): 67001981 ICD Code: E11.69 - TYPE 2 DIABETES MELLITUS WITH OTHER SPECIFIED COMPLICATION; E66.9 - OBESITY, UNSPECIFIED Status: Chronic Current Visit: Yes (4) History of seizures SNOMED Code(s): 578725283 ICD Code: Z87.898 - PERSONAL HISTORY OF OTHER SPECIFIED CONDITIONS Status: Chronic Current Visit: Yes (5) Morbid obesity with BMI of 40.0-44.9, adult SNOMED Code(s): 681165526, 82267060541861 ICD Code: E66.01 - MORBID (SEVERE) OBESITY DUE TO EXCESS CALORIES; Z68.41 - BODY MASS INDEX [BMI] 40.0-44.9, ADULT Status: Chronic Current Visit: Yes (6) Pneumonia due to COVID-19 virus SNOMED Code(s): 548533527302385797 ICD Code: U07.1 - COVID-19; J12.82 - PNEUMONIA DUE TO CORONAVIRUS DISEASE 2019 Status: Acute Current Visit: Yes (7) Renal infarct SNOMED Code(s): 87271145 ICD Code: N28.0 - ISCHEMIA AND INFARCTION OF KIDNEY Status: Acute Current Visit: Yes (8) Splenic infarct SNOMED Code(s): 20332654 ICD Code: D73.5 - INFARCTION OF SPLEEN Status: Acute Current Visit: Yes (9) Hypokalemia SNOMED Code(s): 14065298 ICD Code: E87.6 - HYPOKALEMIA Status: Acute Current Visit: Yes Problem List Initiated/Reviewed/Updated: Yes Orders Last 24hrs: Active Orders 24 hr Category Date Time Status Admission Status [Patient Status] [ADT] Routine ADT 08/17/21 21:41 Active Patient Status [ADT] Routine ADT 08/18/21 08:32 Ordered Antiembolic Devices [RC] .Routine Care 08/18/21 08:33 Ordered Oxygen Therapy [RC] 00,08,16 Care 08/18/21 00:03 Active Pulse Oximetry [RC] PRN Care 08/18/21 08:32 Ordered RT Aerosol Therapy [RC] .PRN Care 08/18/21 00:01 Active VTE/DVT Education [RC] Click to Edit Care 08/18/21 08:33 Ordered Vital Signs [RC] 00,04,08,12,16,20 Care 08/18/21 00:03 Active Vital Signs [RC] Q4H Care 08/18/21 08:32 Ordered Consistent Carbohydrate Diet [DIET] Diet 08/18/21 Breakfast Active Abdomen 1V Flat [CR] Stat Exams 08/17/21 14:25 Taken CTA Abd Pelv w Cont [CT] Routine Exams 08/18/21 04:27 Stop Req CTA Abd Pelv w Cont [CT] Routine Exams 08/18/21 08:00 Ordered CTA Runoff [CT] Stat Exams 08/17/21 17:45 Taken Chest 1V Frontal [CR] Stat Exams 08/17/21 14:24 Taken Echo Comp w Cont [US] Stat Exams 08/18/21 07:41 Ordered BASIC METABOLIC PANEL,BMP [CHEM] AM Lab 08/19/21 05:11 Ordered BASIC METABOLIC PANEL,BMP [CHEM] AM Lab 08/20/21 05:11 Ordered CBC WITH AUTO DIFF [HEME] AM Lab 08/19/21 05:11 Ordered CBC WITH AUTO DIFF [HEME] AM Lab 08/20/21 05:11 Ordered Acetaminophen [Tylenol Extra Strength] Med 08/18/21 08:00 Active 1,000 mg PO Q6H Albuterol [Ventolin HFA] Med 08/18/21 07:34 Active 0 gm INH Q4H PRN Budesonide/Formoterol Fumarate [Symbicort 160-4.5 Mcg Med 08/18/21 09:00 Act anali Inhaler] 2 puff INH BID Cetirizine [ZyrTEC] Med 08/18/21 09:00 Active 10 mg PO DAILY Dicyclomine [Bentyl] Med 08/18/21 01:30 Active 20 mg PO TID Enoxaparin [Lovenox] Med 08/18/21 13:30 Active 120 mg SUBCUT Q12H Folic Acid Med 08/18/21 09:00 Active 0.8 mg PO DAILY Ketorolac [Toradol] Med 08/18/21 12:30 Active 30 mg IVPUSH Q6H Omeprazole [Prilosec] Med 08/18/21 09:00 Pending 20 mg PO BID Pregabalin [Lyrica] Med 08/18/21 09:00 Active 225 mg PO BID Simvastatin [Zocor] Med 08/18/21 21:00 Active 10 mg PO BEDTIME Sodium Chloride 0.9% [Normal Saline] 1,000 ml Med 08/18/21 06:05 Active IV ASDIRECTED Sodium Chloride 0.9% [Normal Saline] 1,000 ml Med 08/18/21 07:45 Ordered IV ASDIRECTED Tiotropium Michie [Spiriva Respimat] Med 08/18/21 09:00 Pending DOSE gm INH DAILY carBAMazepine [TEGretol ER] Med 08/18/21 09:00 Active 200 mg PO DAILY carBAMazepine [TEGretol ER] Med 08/18/21 02:00 Active 400 mg PO BEDTIME glipiZIDE [Glucotrol XL] Med 08/18/21 09:00 Active 5 mg PO DAILY hydroCHLOROthiazide Med 08/18/21 09:00 Active 25 mg PO DAILY methocarbamoL [Robaxin] Med 08/18/21 09:00 Active 500 mg PO TID DVT/VTE Prophylaxis Reflex [OM.PC] Per Unit Routine Oth 08/18/21 08:32 Ordered Resuscitation Status Routine Resus Stat 08/18/21 00:03 Ordered Medication Orders Acetaminophen (Acetaminophen 500 Mg Tab) 1,000 mg PO Q6H [facility] Albuterol (Albuterol 8 Gm Inhaler) 0 gm INH Q4H PRN PRN Reason: Wheezing Carbamazepine (Carbamazepine 200 Mg Tab.Er) 200 mg PO DAILY [facility] Carbamazepine (Carbamazepine 200 Mg Tab.Er) 400 mg PO BEDTIME [facility] Last Admin: 08/18/21 02:00 Dose: 400 mg Documented by: BENJAMIN Cetirizine HCl (Cetirizine 10 Mg Tab) 10 mg PO DAILY [facility] Enoxaparin Sodium (Enoxaparin 120 Mg/0.8 Ml Syringe) 120 mg SUBCUT Q12H [facility] Folic Acid (Folic Acid 0.8 Mg Tab) 0.8 mg PO DAILY [facility] Glipizide (Glipizide 5 Mg Tab.Er) 5 mg PO DAILY [facility] Hydrochlorothiazide (Hydrochlorothiazide 25 Mg Tab) 25 mg PO DAILY [facility] Sodium Chloride (Normal Saline) 1,000 mls @ 250 mls/hr IV ASDIRECTED [facility] Sodium Chloride (Normal Saline) 1,000 mls @ 999 mls/hr IV ASDIRECTED [facility] Ketorolac Tromethamine (Ketorolac 30 Mg/Ml Sdv) 30 mg IVPUSH Q6H [facility] Methocarbamol (Methocarbamol 500 Mg Tab) 500 mg PO TID [facility] Dicyclomine [Bentyl] 20 Mg TabletPt Own 20 mg PO TID [facility] Last Admin: 08/18/21 01:40 Dose: 20 mg Documented by: BENJAMIN Symbicort 160-4.5 (Mcg InhPt Own) 2 puff INH BID [facility] Pantoprazole Sodium (Pantoprazole 40 Mg Tab.Cr) 40 mg PO BID [facility] Pregabalin (Pregabalin 75 Mg Cap) 225 mg PO BID [facility] Simvastatin (Simvastatin 10 Mg Tab) 10 mg PO BEDTIME [facility] Tiotropium Michie (Tiotropium Michie 4 Gm Inhalation [place] *Ptom) 0 gm INH D AILY [facility] Assessment/Plan Comment:: 1. 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 Patient will have follow-up CT today further recommendations based on CT results. 2. Hypokalemia: Continue to monitor and replace electrolytes as necessary 3. Chronic conditions: Continue home medications 4. DVT prophylaxis: Enoxaparin as above 5. GI prophylaxis: Consistent carbohydrate diet 6. Disposition: Pending results of today's CT and expert consultation. Likely 1 to 2 days. Patient is being given a 1 L normal saline bolus prior to second contrast load for CTA abdomen and pelvis. Patient will be given a second 1 L saline bolus following CTA.
[2021-08-18] MEDS: Acetaminophen 500 MG Tab PO SCH ×3 (08:51→20:21)
[2021-08-18] MEDS: Methocarbamol 500 MG Tab PO SCH ×3 (08:53→20:22)
[2021-08-18] MEDS: Hydrochlorothiazide 25 MG Tab PO SCH (08:55)
[2021-08-18] MEDS: Pantoprazole 40 MG Tab.CR PO SCH ×2 (08:55→20:23)
[2021-08-18] MEDS: glipiZIDE 5 MG Tab.ER PO SCH (08:55)
[2021-08-18] MEDS: Folic Acid 0.8 MG Tab PO SCH (08:56)
[2021-08-18] MEDS ORDERED: glipiZIDE 5 MG Tab.ER PO SCH ×2 (09:00)
[2021-08-18] MEDS ORDERED: Cetirizine 10 MG Tab PO SCH ×2 (09:00)
[2021-08-18] MEDS ORDERED: Methocarbamol 500 MG Tab PO SCH ×2 (09:00)
[2021-08-18] MEDS ORDERED: Non-Formulary Medication 1 Each (Pregabalin [Lyrica] 150 MG Capsule) PO SCH ×2 (09:00)
[2021-08-18] MEDS ORDERED: Folic Acid 1 MG Tab PO SCH ×2 (09:00)
[2021-08-18] MEDS ORDERED: Hydrochlorothiazide 12.5 MG Cap PO SCH ×2 (09:00)
[2021-08-18] MEDS: TIOTROPIUM BROMIDE INH SCH (09:22)
[2021-08-18] MEDS: Pregabalin 75 MG Cap PO SCH ×2 (09:22→20:23)
[2021-08-18] MEDS: Cetirizine 10 MG Tab PO SCH (09:23)
[2021-08-18] MEDS ORDERED: Iopamidol 755 MG/ML 150 ML Bottle IV ONE (10:44)
[2021-08-18] MEDS: Enoxaparin 120 MG/0.8 ML Syringe SUBCUT SCH (12:50)
--- NOTE | 2021-08-18 17:40 | PCM.EKG ---
#1 Interpretation EKG Date: 08/18/21 Time: 15:30 EKG Interpretation Comments: Normal sinus rhythm, rate 80, normal axis, no obvious ST-T segment abnormalities
[2021-08-18] MEDS ORDERED: Simvastatin 10 MG Tab PO SCH ×3 (21:00)
[2021-08-19] MEDS: Ketorolac 30 MG/ML SDV IVPUSH SCH ×4 (01:07→17:42)
[2021-08-19] MEDS: Acetaminophen 500 MG Tab PO SCH ×3 (01:08→13:45)
[2021-08-19] MEDS: Enoxaparin 120 MG/0.8 ML Syringe SUBCUT SCH ×2 (01:09→13:43)
[2021-08-19] MEDS: Sodium Chloride 0.9% 10 ML Syringe FLUSH PRN ×5 (01:10→17:41)
[2021-08-19] MEDS ORDERED: Potassium Chloride 20 MEQ Tab.ER PO ONE (07:57)
[2021-08-19] MEDS: SYMBICORT INH SCH (08:35)
[2021-08-19] MEDS: Folic Acid 0.8 MG Tab PO SCH (08:36)
[2021-08-19] MEDS: DICYCLOMINE 20 MG PO SCH ×2 (08:36→13:42)
[2021-08-19] MEDS: glipiZIDE 5 MG Tab.ER PO SCH (08:37)
[2021-08-19] MEDS: Hydrochlorothiazide 25 MG Tab PO SCH (08:37)
[2021-08-19] MEDS: Pantoprazole 40 MG Tab.CR PO SCH (08:38)
[2021-08-19] MEDS: Methocarbamol 500 MG Tab PO SCH ×2 (08:38→13:44)
[2021-08-19] MEDS: TIOTROPIUM BROMIDE INH SCH (08:39)
[2021-08-19] MEDS: carBAMazepine 200 MG TAB.ER PO SCH (08:40)
[2021-08-19] MEDS: Cetirizine 10 MG Tab PO SCH (08:41)
[2021-08-19] MEDS ORDERED: Magnesium Sulfate/Water 50 ML IV ONE (08:45)
[2021-08-19] MEDS: Pregabalin 75 MG Cap PO SCH (09:20)
--- NOTE | 2021-08-19 09:29 | PCM.PN ---
- General Info Date of Service: 08/19/21 Admission Dx/Problem (Free Text): Admission Diagnosis/Problem Admission Diagnosis/Problem Coagulation disorder Subjective Update: Patient states that she feels better and would like to go home. She does complain of some numbness and tingling with coolness in her left hand. She states that the symptoms have improved since last night Functional Status: Reports: Pain Controlled, Tolerating Diet, Ambulating, Urinating - Review of Systems General: Reports: Weakness HEENT: Reports: No Symptoms Pulmonary: Reports: No Symptoms Cardiovascular: Reports: No Symptoms Gastrointestinal: Reports: No Symptoms Genitourinary: Reports: No Symptoms Musculoskeletal: Reports: No Symptoms Skin: Reports: No Symptoms Neurological: Reports: No Symptoms Psychiatric: Reports: No Symptoms - Patient Data Vitals - Most Recent: Last Vital Signs Temp 36.8 C 08/19/21 06:00 Pulse 90 08/19/21 06:00 Resp 16 08/19/21 06:00 BP 150/86 H 08/19/21 06:00 Pulse Ox 94 L 08/19/21 06:00 Weight - Most Recent: 114.305 kg Lab Results Last 24 Hours: Laboratory Results - last 24 hr 08/19/21 08/19/21 08/19/21 Range/Units 07:00 07:00 07:00 WBC 12.2 H (3.0-10.3) x10-3/uL RBC 4.31 (3.60-5.20) x10(6)uL Hgb 13.4 (11.4-15.5) g/dL Hct 39.4 (34.2-48.2) % MCV 91.6 (76.7-100.5) fL MCH 31.1 (23.9-33.9) pg MCHC 33.9 (31.9-34.8) g/dL RDW 12.8 (12.3-16.5) % Plt Count 255 (151-488) x10(3)uL MPV 7.1 (7.1-12.4) fL Neut % (Auto) 76.2 (30.8-76.2) % Lymph % (Auto) 14.0 L (18.4-52.1) % Barton % (Auto) 8.1 (4.4-15.7) % Eos % (Auto) 0.4 L (0.6-8.1) % Baso % (Auto) 1.3 (0.2-1.5) % Neut # (Auto) 9.3 H (1.5-6.3) x10-3/uL Lymph # (Auto) 1.7 (1.0-4.4) x10-3/uL Barton # (Auto) 1.0 (0.3-1.0) x10-3/uL Eos # (Auto) 0.1 (0.0-0.8) x10-3/uL Baso # (Auto) 0.2 H (0.0-0.1) x10-3/uL Sodium 138 (135-145) mmol/L Potassium 2.8 L* (3.5-5.3) mmol/L Chloride 102 (100-110) mmol/L Carbon Dioxide 27 (21-32) mmol/L BUN 5 L (7-18) mg/dL Creatinine 0.9 (0.55-1.02) mg/dL Est Cr Clr Drug Dosing 70.28 mL/min Estimated GFR (MDRD) > 60 (>60) BUN/Creatinine Ratio 5.6 L (9-20) Glucose 109 (80-116) mg/dL Calcium 7.4 L (8.6-10.2) mg/dL Magnesium 1.7 L (1.8-2.5) mg/dL Total Bilirubin 0.9 (0.1-1.3) mg/dL AST 77 H D (5-25) IU/L ALT 49 H D (12-36) U/L Alkaline Phosphatase 96 (56-112) IU/L Total Protein 6.2 (6.0-8.0) g/dL Albumin 2.3 L (3.5-5.2) g/dL Globulin 3.9 g/dL Albumin/Globulin Ratio 0.6 Med Orders - Current: Current Medications Acetaminophen (Acetaminophen 500 Mg Tab) 1,000 mg PO Q6H [facility] Last Admin: 08/19/21 08:33 Dose: 1,000 mg Documented by: Albuterol (Albuterol 8 Gm Inhaler) 0 gm INH Q4H PRN PRN Reason: Wheezing Carbamazepine (Carbamazepine 200 Mg Tab.Er) 200 mg PO DAILY [facility] Last Admin: 08/19/21 08:40 Dose: 200 mg Documented by: Carbamazepine (Carbamazepine 200 Mg Tab.Er) 400 mg PO BEDTIME [facility] Last Admin: 08/18/21 20:26 Dose: 400 mg Documented by: Cetirizine HCl (Cetirizine 10 Mg Tab) 10 mg PO DAILY [facility] Last Admin: 08/19/21 08:41 Dose: 10 mg Documented by: Enoxaparin Sodium (Enoxaparin 120 Mg/0.8 Ml Syringe) 120 mg SUBCUT Q12H [facility] Last Admin: 08/19/21 01:09 Dose: 120 mg Documented by: Folic Acid (Folic Acid 0.8 Mg Tab) 0.8 mg PO DAILY [facility] Last Admin: 08/19/21 08:36 Dose: 0.8 mg Documented by: Glipizide (Glipizide 5 Mg Tab.Er) 5 mg PO DAILY [facility] Last Admin: 08/19/21 08:37 Dose: 5 mg Documented by: Hydrochlorothiazide (Hydrochlorothiazide 25 Mg Tab) 25 mg PO DAILY [facility] Last Admin: 08/19/21 08:37 Dose: 25 mg Documented by: Magnesium Sulfate (Magnesium Sulfate In Water 2 Gm/50 Ml) 50 mls @ 50 mls/hr IV ONETIME ONE Stop: 08/19/21 09:44 Last Admin: 08/19/21 09:04 Dose: 50 mls/hr Documented by: Ketorolac Tromethamine (Ketorolac 30 Mg/Ml Sdv) 30 mg IVPUSH Q6H [facility] Last Admin: 08/19/21 06:00 Dose: 30 mg Documented by: Methocarbamol (Methocarbamol 500 Mg Tab) 500 mg PO TID [facility] Last Admin: 08/19/21 08:38 Dose: 500 mg Documented by: Dicyclomine [Bentyl] 20 Mg TabletPt Own 20 mg PO TID [facility] Last Admin: 08/19/21 08:36 Dose: 20 mg Documented by: Symbicort 160-4.5 (Mcg InhPt Own) 2 puff INH BID [facility] Last Admin: 08/19/21 08:35 Dose: 2 puff Documented by: Pantoprazole Sodium (Pantoprazole 40 Mg Tab.Cr) 40 mg PO BID [facility] Last Admin: 08/19/21 08:38 Dose: 40 mg Documented by: Potassium Chloride (Potassium Chloride 20 Meq Tab.Er) 20 meq PO BIDMEALS [facility] Pregabalin (Pregabalin 75 Mg Cap) 225 mg PO BID [facility] Last Admin: 08/19/21 09:20 Dose: 225 mg Documented by: Simvastatin (Simvastatin 10 Mg Tab) 10 mg PO BEDTIME [facility] Last Admin: 08/18/21 20:23 Dose: 10 mg Documented by: Sodium Chloride (Sodium Chloride 0.9% 10 Ml Syringe) 10 ml FLUSH ASDIRECTED PRN PRN Reason: Keep Vein Open Last Admin: 08/19/21 09:05 Dose: 10 ml Documented by: Tiotropium [place] (Tiotropium [place] 4 Gm Inhalation [place] *Ptom) 0 gm INH DAILY [facility] Last Admin: 08/19/21 08:39 Dose: 2 puff Documented by: Discontinued Medications Acetaminophen (Acetaminophen 500 Mg Tab) 1,000 mg PO ONETIME ONE Stop: 08/17/21 17:53 Last Admin: 08/17/21 18:26 Dose: 1,000 mg Documented by: Acetaminophen (Acetaminophen 500 Mg Tab) 1,000 mg PO Q6H [facility] Last Admin: 08/18/21 01:39 Dose: 1,000 mg Documented by: Albuterol (Albuterol 8 Gm Inhaler) 0 gm INH Q4H PRN PRN Reason: Wheezing Cetirizine HCl (Cetirizine 10 Mg Tab) 10 mg PO DAILY [facility] Enoxaparin Sodium (Enoxaparin 120 Mg/0.8 Ml Syringe) 120 mg SUBCUT Q12H [facility] Last Admin: 08/18/21 01:39 Dose: 120 mg Documented by: Folic Acid (Folic Acid 1 Mg Tab) 0.8 mg PO DAILY [facility] Glipizide (Glipizide 5 Mg Tab.Er) 5 mg PO DAILY [facility] Hydrochlorothiazide (Hydrochlorothiazide 12.5 Mg Cap) 25 mg PO DAILY [facility] Hydromorphone HCl (Hydromorphone 2 Mg/Ml Sdv) 0.5 mg IVPUSH ONETIME ONE Stop: 08/17/21 21:40 Last Admin: 08/17/21 22:31 Dose: 0.5 mg Documented by: Sodium Chloride (Normal Saline) 1,000 mls @ 999 mls/hr IV .BOLUS ONE Stop: 08/17/21 15:23 Last Admin: 08/17/21 14:30 Dose: 999 mls/hr Documented by: Sodium Chloride (Normal Saline) 1,000 mls @ 999 mls/hr IV .BOLUS ONE Stop: 08/17/21 15:23 Last Admin: 08/17/21 15:47 Dose: 999 mls/hr Documented by: Sodium Chloride (Normal Saline) 1,000 mls @ 250 mls/hr IV ASDIRECTED [facility] Last Admin: 08/18/21 06:05 Dose: 250 mls/hr Documented by: Sodium Chloride (Normal Saline) 1,000 mls @ 250 mls/hr IV ASDIRECTED [facility] Last Admin: 08/18/21 15:44 Dose: 250 mls/hr Documented by: Sodium Chloride (Normal Saline) 1,000 mls @ 999 mls/hr IV ASDIRECTED [facility] Last Admin: 08/18/21 09:56 Dose: 999 mls/hr Documented by: Iopamidol (Iopamidol 755 Mg/Ml 150 Ml Bottle) 150 ml IV ONETIME ONE Stop: 08/17/21 18:21 Last Admin: 08/17/21 18:52 Dose: 150 ml Documented by: Iopamidol (Iopamidol 755 Mg/Ml 150 Ml Bottle) 130 ml IV ONETIME ONE Stop: 08/18/21 10:45 Last Admin: 08/18/21 11:53 Dose: 130 ml Documented by: Ketorolac Tromethamine (Ketorolac 30 Mg/Ml Sdv) 30 mg IVPUSH ONETIME ONE Stop: 08/17/21 14:24 Last Admin: 08/17/21 14:30 Dose: 30 mg Documented by: Ketorolac Tromethamine (Ketorolac 30 Mg/Ml Sdv) 30 mg IVPUSH Q6H [facility] Stop: 08/23/21 00:01 Last Admin: 08/18/21 06:20 Dose: 30 mg Documented by: Ketorolac Tromethamine (Ketorolac 30 Mg/Ml Sdv) Confirm Administered Dose 30 mg .ROUTE .STK-MED ONE Stop: 08/18/21 06:14 Last Admin: 08/18/21 06:40 Dose: Not Given Documented by: Methocarbamol (Methocarbamol 500 Mg Tab) 500 mg PO TID [facility] Metoclopramide HCl (Metoclopramide 10 Mg/2 Ml Sdv) 10 mg IVPUSH ONETIME ONE Stop: 08/17/21 17:53 Last Admin: 08/17/21 18:26 Dose: 10 mg Documented by: Morphine Sulfate (Morphine 2 Mg/Ml Syringe) 2 mg IVPUSH ONETIME ONE Stop: 08/17/21 17:52 Last Admin: 08/17/21 18:26 Dose: 2 mg Documented by: Symbicort 160-4.5 (Mcg InhPt Own) 2 puff INH BID [facility] Last Admin: 08/18/21 01:47 Dose: Not Given Documented by: Carbamazepine [ Tegretol Xr] 200 Mg Cap.ErPt Own 400 mg PO BEDTIME [facility] Last Admin: 08/18/21 04:40 Dose: Not Given Documented by: Non-Formulary Medication (Omeprazole [Prilosec]) 20 mg PO BID [facility] Non-Formulary Medication (Pregabalin [Lyrica]) 225 mg PO BID [facility] Ondansetron HCl (Ondansetron 4 Mg/2 Ml Sdv) 4 mg IVPUSH ONETIME ONE Stop: 08/17/21 14:22 Last Admin: 08/17/21 14:30 Dose: 4 mg Documented by: Potassium Chloride (Potassium Chloride 20 Meq Tab.Er) 40 meq PO ONETIME ONE Stop: 08/18/21 07:47 Last Admin: 08/18/21 08:53 Dose: 40 meq Documented by: Potassium Chloride (Potassium Chloride 20 Meq Tab.Er) 40 meq PO ONETIME ONE Stop: 08/19/21 07:58 Last Admin: 08/19/21 08:25 Dose: 40 meq Documented by: Simvastatin (Simvastatin 10 Mg Tab) 10 mg PO BEDTIME [facility] Comments:: Patient lying in bed left lateral, awake, alert, pleasant, interactive, does seem mildly anxious - Exam Quality Assessment: Supplemental Oxygen, DVT Prophylaxis General: Alert, Oriented, Cooperative, Mild Distress HEENT: EOMI Neck: Supple Lungs: Crackles Cardiovascular: Regular Rate, Regular Rhythm, No Murmurs GI/Abdominal Exam: Normal Bowel Sounds, Soft, Tender Back Exam: Normal Inspection Extremities: Pedal Edema Peripheral Pulses: 1+: Radial (L), 2+: Radial (R), Dorsalis Pedis (L), Dorsalis Pedis (R) Skin: Warm, Other (Note that her left hand does feel a little cooler than her right, capillary refill is less than 2 seconds) Neurological: No New Focal Deficit Psy/Mental Status: Alert, Normal Affect, Normal Mood - Patient Data Lab Results Last 24 hrs: Laboratory Results - last 24 hr 08/19/21 08/19/21 08/19/21 Range/Units 07:00 07:00 07:00 WBC 12.2 H (3.0-10.3) x10-3/uL RBC 4.31 (3.60-5.20) x10(6)uL Hgb 13.4 (11.4-15.5) g/dL Hct 39.4 (34.2-48.2) % MCV 91.6 (76.7-100.5) fL MCH 31.1 (23.9-33.9) pg MCHC 33.9 (31.9-34.8) g/dL RDW 12.8 (12.3-16.5) % Plt Count 255 (151-488) x10(3)uL MPV 7.1 (7.1-12.4) fL Neut % (Auto) 76.2 (30.8-76.2) % Lymph % (Auto) 14.0 L (18.4-52.1) % Barton % (Auto) 8.1 (4.4-15.7) % Eos % (Auto) 0.4 L (0.6-8.1) % Baso % (Auto) 1.3 (0.2-1.5) % Neut # (Auto) 9.3 H (1.5-6.3) x10-3/uL Lymph # (Auto) 1.7 (1.0-4.4) x10-3/uL Barton # (Auto) 1.0 (0.3-1.0) x10-3/uL Eos # (Auto) 0.1 (0.0-0.8) x10-3/uL Baso # (Auto) 0.2 H (0.0-0.1) x10-3/uL Sodium 138 (135-145) mmol/L Potassium 2.8 L* (3.5-5.3) mmol/L Chloride 102 (100-110) mmol/L Carbon Dioxide 27 (21-32) mmol/L BUN 5 L (7-18) mg/dL Creatinine 0.9 (0.55-1.02) mg/dL Est Cr Clr Drug Dosing 70.28 mL/min Estimated GFR (MDRD) > 60 (>60) BUN/Creatinine Ratio 5.6 L (9-20) Glucose 109 (80-116) mg/dL Calcium 7.4 L (8.6-10.2) mg/dL Magnesium 1.7 L (1.8-2.5) mg/dL Total Bilirubin 0.9 (0.1-1.3) mg/dL AST 77 H D (5-25) IU/L ALT 49 H D (12-36) U/L Alkaline Phosphatase 96 (56-112) IU/L Total Protein 6.2 (6.0-8.0) g/dL Albumin 2.3 L (3.5-5.2) g/dL Globulin 3.9 g/dL Albumin/Globulin Ratio 0.6 Result Diagrams: 08/19/21 07:00 08/19/21 07:00 Sepsis Event Note - Evaluation Sepsis Screening Result: No Definite Risk - Focused Exam Vital Signs: Vital Signs Temp Pulse Resp BP Pulse Ox 08/19/21 06:00 36.8 C 90 16 150/86 H 94 L 08/19/21 01:00 36.5 C 85 16 134/83 94 L - Problem List & Annotations (1) Spina bifida SNOMED Code(s): 80553971 Code(s): Q05.9 - SPINA BIFIDA, UNSPECIFIED Status: Chronic Current Visit: Yes (2) Essential hypertension SNOMED Code(s): 44392509 Code(s): I10 - ESSENTIAL (PRIMARY) HYPERTENSION Status: Chronic Current Visit: Yes (3) Diabetes mellitus type 2 in obese SNOMED Code(s): 71982642 Code(s): E11.69 - TYPE 2 DIABETES MELLITUS WITH OTHER SPECIFIED COMPLICATION; E66.9 - OBESITY, UNSPECIFIED Status: Chronic Current Visit: Yes (4) History of seizures SNOMED Code(s): 678348721 Code(s): Z87.898 - PERSONAL HISTORY OF OTHER SPECIFIED CONDITIONS Status: Chronic Current Visit: Yes (5) Morbid obesity with BMI of 40.0-44.9, adult SNOMED Code(s): 098276003, 76118865489388 Code(s): E66.01 - MORBID (SEVERE) OBESITY DUE TO EXCESS CALORIES; Z68.41 - BODY MASS INDEX [BMI] 40.0-44.9, ADULT Status: Chronic Current Visit: Yes (6) Pneumonia due to COVID-19 virus SNOMED Code(s): 458874617877031105 Code(s): U07.1 - COVID-19; J12.82 - PNEUMONIA DUE TO CORONAVIRUS DISEASE 2018 Status: Acute Current Visit: Yes (7) Renal infarct SNOMED Code(s): 51122582 Code(s): N28.0 - ISCHEMIA AND INFARCTION OF KIDNEY Status: Acute Current Visit: Yes (8) Splenic infarct SNOMED Code(s): 62157060 Code(s): D73.5 - INFARCTION OF SPLEEN Status: Acute Current Visit: Yes (9) Hypokalemia SNOMED Code(s): 36023353 Code(s): E87.6 - HYPOKALEMIA Status: Acute Current Visit: Yes - Problem List Review Problem List Initiated/Reviewed/Updated: Yes - My Orders Last 24 Hours: My Active Orders 08/18/21 08:32 Patient Status [ADT] Routine Pulse Oximetry [RC] PRN DVT/VTE Prophylaxis Reflex [OM.PC] Per Unit Routine 08/18/21 08:33 Antiembolic Devices [RC] .Routine VTE/DVT Education [RC] Click to Edit 08/18/21 14:34 EKG 12 Lead [EK] Routine 08/18/21 15:00 Communication Order [RC] Q1HR 08/18/21 17:27 Convert IV to Saline Lock [OM.PC] Routine 08/19/21 05:59 Sodium Chloride 0.9% [Saline Flush] 10 ml FLUSH ASDIRECTED PRN 08/19/21 08:45 Magnesium Sulfate/Water [Magnesium Sulfate in Water 2 GM/50 ML] 50 ml IV ONETIME 08/19/21 12:00 Potassium Chloride [Klor-Con M20] 20 meq PO BIDMEALS 08/20/21 BASIC METABOLIC PANEL,BMP [CHEM] Routine CBC WITH AUTO DIFF [HEME] Routine - Plan Plan:: 1. 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 Follow-up CT shows geographic regions of infarction involving approximately 30% of the right kidney, stable in appearance to prior exam. No obvious occlusion of the main right renal artery and interlobar branches. Regional decreased enhancement involving the upper pole of the spleen which may represent a site of infarction. Patchy subpleural ground glass Cassity at both lung bases which may reflect multifocal pneumonia and can be seen in the setting of COVID-19 infection. Hepatomegaly with steatosis. 2. Hypokalemia: Continue to monitor and replace electrolytes as necessary 3. Chronic conditions: Continue home medications 4. DVT prophylaxis: Enoxaparin as above 5. GI prophylaxis: Consistent carbohydrate diet 6. Disposition: I was able to consult with hematology. Per recommendation patient will not be sent home until we can transfer her to an acute care facility for further evaluation of renal and splenic infarcts and possibility of new arterial clotting. Patient will be made inpatient today.
[2021-08-19] MEDS: Potassium Chloride 20 MEQ Tab.ER PO SCH ×2 (13:39→17:40)
[2021-08-19 14:36] VITALS: PULSE 77
[2021-08-19 18:01] VITALS: BP 154/83
--- NOTE | 2021-08-19 18:18 | PCM.DCSUM1 ---
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 She has been treated with CT abdomen and pelvis in the emergency department followed up by CT abdomen and pelvis which verified likely splenic infarct and possible renal infarct. Patient also had an episode of possible limb ischemia in the left upper extremity/hand. The hand was numb, tingly, slightly pale and cool to touch. Nursing had to use hand-held Doppler to find a radial pulse. Other pulses were palpated. Limb ischemia seems to have resolved. Consultation with nephrology and hematology [facility] and evaluation. Patient was treated via consult with 1 mg/kg enoxaparin twice daily for anticoagulation. No hypercoagulability labs were performed due to time involved in send outs. But these labs were considered. - Discharge Data Discharge Date: 08/19/21 Discharge Disposition: DC/Tfer to [facility] 02 Condition: Fair - Referral to Home Health Primary Care Physician: Adrian Mosqueda MD - Discharge Diagnosis/Problem(s) (1) Spina bifida SNOMED Code(s): 94609091 ICD Code: Q05.9 - SPINA BIFIDA, UNSPECIFIED Status: Chronic Current Visit: Yes (2) Essential hypertension SNOMED Code(s): 14125982 ICD Code: I10 - ESSENTIAL (PRIMARY) HYPERTENSION Status: Chronic Current Visit: Yes (3) Diabetes mellitus type 2 in obese SNOMED Code(s): 94145099 ICD Code: E11.69 - TYPE 2 DIABETES MELLITUS WITH OTHER SPECIFIED COMPLICA TION; E66.9 - OBESITY, UNSPECIFIED Status: Chronic Current Visit: Yes (4) History of seizures SNOMED Code(s): 085796599 ICD Code: Z87.898 - PERSONAL HISTORY OF OTHER SPECIFIED CONDITIONS Status: Chronic Current Visit: Yes (5) Morbid obesity with BMI of 40.0-44.9, adult SNOMED Code(s): 300251433, 51515913129702 ICD Code: E66.01 - MORBID (SEVERE) OBESITY DUE TO EXCESS CALORIES; Z68.41 - BODY MASS INDEX [BMI] 40.0-44.9, ADULT Status: Chronic Current Visit: Yes (6) Pneumonia due to COVID-19 virus SNOMED Code(s): 795860070754116095 ICD Code: U07.1 - COVID-19; J12.82 - PNEUMONIA DUE TO CORONAVIRUS DISEASE 2019 Status: Acute Current Visit: Yes (7) Renal infarct SNOMED Code(s): 04661561 ICD Code: N28.0 - ISCHEMIA AND INFARCTION OF KIDNEY Status: Acute Current Visit: Yes (8) Splenic infarct SNOMED Code(s): 49503592 ICD Code: D73.5 - INFARCTION OF SPLEEN Status: Acute Current Visit: Yes (9) Hypokalemia SNOMED Code(s): 10813699 ICD Code: E87.6 - HYPOKALEMIA Status: Acute Current Visit: Yes - Discharge Plan *PRESCRIPTION DRUG MONITORING PROGRAM REVIEWED*: Not Applicable *COPY OF PRESCRIPTION DRUG MONITORING REPORT IN PATIENT CASSIA: Not Applicable Home Medications: Home Meds Albuterol [Proventil HFA] 2 inhalation INH Q4H PRN 04/03/14 [History] Dicyclomine [Bentyl] 20 mg PO TID 04/03/14 [History] Folic Acid 800 mcg PO DAILY 04/03/14 [History] Omeprazole [Prilosec] 20 mg PO BID 04/03/14 [History] carBAMazepine [TEGretol XR] 400 mg PO BEDTIME 04/03/14 [History] carBAMazepine [Tegretol XR] 200 mg PO DAILY 04/03/14 [History] hydroCHLOROthiazide [Hydrochlorothiazide] 25 mg PO DAILY 04/03/14 [History] Simvastatin [Zocor] 10 mg PO BEDTIME 04/04/14 [History] Cetirizine [ZyrTEC] 10 mg PO DAILY 03/20/18 [History] Pregabalin [Lyrica] 225 mg PO BID 03/20/18 [History] Budesonide/Formoterol Fumarate [Symbicort 160-4.5 Mcg Inhaler] 2 puff INH BID 08/17/21 [History] Tiotropium [place] [Spiriva Respimat] 2 puff INH DAILY 08/17/21 [History] glipiZIDE [Glucotrol XL] 5 mg PO DAILY 08/17/21 [History] methocarbamoL [Methocarbamol] 500 mg PO TID 08/17/21 [History] Forms: ED Department Discharge Referrals: Adrian Mosqueda MD [Primary Care Provider] - - Discharge Summary/Plan Comment DC Time >30 min.: No Total # of Minutes for Discharge Time: 20 Discharge Summary/Plan Comment: Transfer to [facility] for further evaluation and testing by nephrology, hematology, GI, cardiology, and as applicable. - General Info Date of Service: 08/19/21 Admission Dx/Problem (Free Text: Admission Diagnosis/Problem Admission Diagnosis/Problem Coagulation disorder Subjective Update: Patient states that she feels better would like to go home. She does complain of some numbness and tingling with coolness and her left hand. She states that the symptoms have improved since last night. Functional Status: Reports: Pain Controlled, Tolerating Diet, Ambulating, Urinating - Review of Systems General: Reports: Weakness HEENT: Reports: No Symptoms Pulmonary: Reports: No Symptoms Cardiovascular: Reports: No Symptoms Gastrointestinal: Reports: No Symptoms Genitourinary: Reports: No Symptoms Musculoskeletal: Reports: No Symptoms Skin: Reports: No Symptoms Neurological: Reports: No Symptoms Psychiatric: Reports: No Symptoms - Patient Data Vitals - Most Recent: Last Vital Signs Temp 36.5 C 08/19/21 16:00 Pulse 77 08/19/21 16:00 Resp 18 08/19/21 16:00 BP 154/83 H 08/19/21 16:00 Pulse Ox 93 L 08/19/21 16:00 Weight - Most Recent: 114.305 kg I&O - Last 24 hours: Intake & Output 08/19/21 08/19/21 08/19/21 06:59 14:59 22:59 Intake Total 950 Balance 950 Lab Results - Last 24 hrs: Laboratory Results - last 24 hr 08/19/21 08/19/21 08/19/21 Range/Units 07:00 07:00 07:00 WBC 12.2 H (3.0-10.3) x10-3/uL RBC 4.31 (3.60-5.20) x10(6)uL Hgb 13.4 (11.4-15.5) g/dL Hct 39.4 (34.2-48.2) % MCV 91.6 (76.7-100.5) fL MCH 31.1 (23.9-33.9) pg MCHC 33.9 (31.9-34.8) g/dL RDW 12.8 (12.3-16.5) % Plt Count 255 (151-488) x10(3)uL MPV 7.1 (7.1-12.4) fL Neut % (Auto) 76.2 (30.8-76.2) % Lymph % (Auto) 14.0 L (18.4-52.1) % [place] % (Auto) 8.1 (4.4-15.7) % Eos % (Auto) 0.4 L (0.6-8.1) % Baso % (Auto) 1.3 (0.2-1.5) % Neut # (Auto) 9.3 H (1.5-6.3) x10-3/uL Lymph # (Auto) 1.7 (1.0-4.4) x10-3/uL [place] # (Auto) 1.0 (0.3-1.0) x10-3/uL Eos # (Auto) 0.1 (0.0-0.8) x10-3/uL Baso # (Auto) 0.2 H (0.0-0.1) x10-3/uL Sodium 138 (135-145) mmol/L Potassium 2.8 L* (3.5-5.3) mmol/L Chloride 102 (100-110) mmol/L Carbon Dioxide 27 (21-32) mmol/L BUN 5 L (7-18) mg/dL Creatinine 0.9 (0.55-1.02) mg/dL Est Cr Clr Drug Dosing 70.28 mL/min Estimated GFR (MDRD) > 60 (>60) BUN/Creatinine Ratio 5.6 L (9-20) Glucose 109 (80-116) mg/dL Calcium 7.4 L (8.6-10.2) mg/dL Magnesium 1.7 L (1.8-2.5) mg/dL Total Bilirubin 0.9 (0.1-1.3) mg/dL AST 77 H D (5-25) IU/L ALT 49 H D (12-36) U/L Alkaline Phosphatase 96 (56-112) IU/L Total Protein 6.2 (6.0-8.0) g/dL Albumin 2.3 L (3.5-5.2) g/dL Globulin 3.9 g/dL Albumin/Globulin Ratio 0.6 Med Orders - Current: Current Medications Acetaminophen (Acetaminophen 500 Mg Tab) 1,000 mg PO Q6H [facility] Last Admin: 08/19/21 13:45 Dose: 1,000 mg Documented by: Albuterol (Albuterol 8 Gm Inhaler) 0 gm INH Q4H PRN PRN Reason: Wheezing Carbamazepine (Carbamazepine 200 Mg Tab.Er) 200 mg PO DAILY [facility] Last Admin: 08/19/21 08:40 Dose: 200 mg Documented by: Carbamazepine (Carbamazepine 200 Mg Tab.Er) 400 mg PO BEDTIME [facility] Last Admin: 08/18/21 20:26 Dose: 400 mg Documented by: Cetirizine HCl (Cetirizine 10 Mg Tab) 10 mg PO DAILY [facility] Last Admin: 08/19/21 08:41 Dose: 10 mg Documented by: Enoxaparin Sodium (Enoxaparin 120 Mg/0.8 Ml Syringe) 120 mg SUBCUT Q12H [facility] Last Admin: 08/19/21 13:43 Dose: 120 mg Documented by: Folic Acid (Folic Acid 0.8 Mg Tab) 0.8 mg PO DAILY [facility] Last Admin: 08/19/21 08:36 Dose: 0.8 mg Documented by: Glipizide (Glipizide 5 Mg Tab.Er) 5 mg PO DAILY [facility] Last Admin: 08/19/21 08:37 Dose: 5 mg Documented by: Hydrochlorothiazide (Hydrochlorothiazide 25 Mg Tab) 25 mg PO DAILY [facility] Last Admin: 08/19/21 08:37 Dose: 25 mg Documented by: Ketorolac Tromethamine (Ketorolac 30 Mg/Ml Sdv) 30 mg IVPUSH Q6H [facility] Last Admin: 08/19/21 17:42 Dose: 30 mg Documented by: Methocarbamol (Methocarbamol 500 Mg Tab) 500 mg PO TID [facility] Last Admin: 08/19/21 13:44 Dose: 500 mg Documented by: Dicyclomine [Bentyl] 20 Mg TabletPt Own 20 mg PO TID [facility] Last Admin: 08/19/21 13:42 Dose: 20 mg Documented by: Symbicort 160-4.5 (Mcg InhPt Own) 2 puff INH BID [facility] Last Admin: 08/19/21 08:35 Dose: 2 puff Documented by: Pantoprazole Sodium (Pantoprazole 40 Mg Tab.Cr) 40 mg PO BID [facility] Last Admin: 08/19/21 08:38 Dose: 40 mg Documented by: Potassium Chloride (Potassium Chloride 20 Meq Tab.Er) 20 meq PO BIDMEALS [facility] Last Admin: 08/19/21 17:40 Dose: 20 meq Documented by: Pregabalin (Pregabalin 75 Mg Cap) 225 mg PO BID [facility] Last Admin: 08/19/21 09:20 Dose: 225 mg Documented by: Simvastatin (Simvastatin 10 Mg Tab) 10 mg PO BEDTIME [facility] Last Admin: 08/18/21 20:23 Dose: 10 mg Documented by: Sodium Chloride (Sodium Chloride 0.9% 10 Ml Syringe) 10 ml FLUSH ASDIRECTED PRN PRN Reason: Keep Vein Open Last Admin: 08/19/21 17:41 Dose: 10 ml Documented by: Tiotropium [place] (Tiotropium [place] 4 Gm Inhalation [place] *Ptom) 0 gm INH DAILY [facility] Last Admin: 08/19/21 08:39 Dose: 2 puff Documented by: Discontinued Medications Acetaminophen (Acetaminophen 500 Mg Tab) 1,000 mg PO ONETIME ONE Stop: 08/17/21 17:53 Last Admin: 08/17/21 18:26 Dose: 1,000 mg Documented by: Acetaminophen (Acetaminophen 500 Mg Tab) 1,000 mg PO Q6H [facility] Last Admin: 08/18/21 01:39 Dose: 1,000 mg Documented by: Albuterol (Albuterol 8 Gm Inhaler) 0 gm INH Q4H PRN PRN Reason: Wheezing Cetirizine HCl (Cetirizine 10 Mg Tab) 10 mg PO DAILY [facility] Enoxaparin Sodium (Enoxaparin 120 Mg/0.8 Ml Syringe) 120 mg SUBCUT Q12H [facility] Last Admin: 08/18/21 01:39 Dose: 120 mg Documented by: Folic Acid (Folic Acid 1 Mg Tab) 0.8 mg PO DAILY [facility] Glipizide (Glipizide 5 Mg Tab.Er) 5 mg PO DAILY [facility] Hydrochlorothiazide (Hydrochlorothiazide 12.5 Mg Cap) 25 mg PO DAILY [facility] Hydromorphone HCl (Hydromorphone 2 Mg/Ml Sdv) 0.5 mg IVPUSH ONETIME ONE Stop: 08/17/21 21:40 Last Admin: 08/17/21 22:31 Dose: 0.5 mg Documented by: Sodium Chloride (Normal Saline) 1,000 mls @ 999 mls/hr IV .BOLUS ONE Stop: 08/17/21 15:23 Last Admin: 08/17/21 14:30 Dose: 999 mls/hr Documented by: Sodium Chloride (Normal Saline) 1,000 mls @ 999 mls/hr IV .BOLUS ONE Stop: 08/17/21 15:23 Last Admin: 08/17/21 15:47 Dose: 999 mls/hr Documented by: Sodium Chloride (Normal Saline) 1,000 mls @ 250 mls/hr IV ASDIRECTED [facility] Last Admin: 08/18/21 06:05 Dose: 250 mls/hr Documented by: Sodium Chloride (Normal Saline) 1,000 mls @ 250 mls/hr IV ASDIRECTED [facility] Last Admin: 08/18/21 15:44 Dose: 250 mls/hr Documented by: Sodium Chloride (Normal Saline) 1,000 mls @ 999 mls/hr IV ASDIRECTED [facility] Last Admin: 08/18/21 09:56 Dose: 999 mls/hr Documented by: Magnesium Sulfate (Magnesium Sulfate In Water 2 Gm/50 Ml) 50 mls @ 50 mls/hr IV ONETIME ONE Stop: 08/19/21 09:44 Last Admin: 08/19/21 09:04 Dose: 50 mls/hr Documented by: Iopamidol (Iopamidol 755 Mg/Ml 150 Ml Bottle) 150 ml IV ONETIME ONE Stop: 08/17/21 18:21 Last Admin: 08/17/21 18:52 Dose: 150 ml Documented by: Iopamidol (Iopamidol 755 Mg/Ml 150 Ml Bottle) 130 ml IV ONETIME ONE Stop: 08/18/21 10:45 Last Admin: 08/18/21 11:53 Dose: 130 ml Documented by: Ketorolac Tromethamine (Ketorolac 30 Mg/Ml Sdv) 30 mg IVPUSH ONETIME ONE Stop: 08/17/21 14:24 Last Admin: 08/17/21 14:30 Dose: 30 mg Documented by: Ketorolac Tromethamine (Ketorolac 30 Mg/Ml Sdv) 30 mg IVPUSH Q6H [facility] Stop: 08/23/21 00:01 Last Admin: 08/18/21 06:20 Dose: 30 mg Documented by: Ketorolac Tromethamine (Ketorolac 30 Mg/Ml Sdv) Confirm Administered Dose 30 mg .ROUTE .STK-MED ONE Stop: 08/18/21 06:14 Last Admin: 08/18/21 06:40 Dose: Not Given Documented by: Methocarbamol (Methocarbamol 500 Mg Tab) 500 mg PO TID [facility] Metoclopramide HCl (Metoclopramide 10 Mg/2 Ml Sdv) 10 mg IVPUSH ONETIME ONE Stop: 08/17/21 17:53 Last Admin: 08/17/21 18:26 Dose: 10 mg Documented by: Morphine Sulfate (Morphine 2 Mg/Ml Syringe) 2 mg IVPUSH ONETIME ONE Stop: 08/17/21 17:52 Last Admin: 08/17/21 18:26 Dose: 2 mg Documented by: Symbicort 160-4.5 (Mcg InhPt Own) 2 puff INH BID [facility] Last Admin: 08/18/21 01:47 Dose: Not Given Documented by: Carbamazepine [ Tegretol Xr] 200 Mg Cap.ErPt Own 400 mg PO BEDTIME [facility] Last Admin: 08/18/21 04:40 Dose: Not Given Documented by: Non-Formulary Medication (Omeprazole [Prilosec]) 20 mg PO BID [facility] Non-Formulary Medication (Pregabalin [Lyrica]) 225 mg PO BID [facility] Ondansetron HCl (Ondansetron 4 Mg/2 Ml Sdv) 4 mg IVPUSH ONETIME ONE Stop: 08/17/21 14:22 Last Admin: 08/17/21 14:30 Dose: 4 mg Documented by: Potassium Chloride (Potassium Chloride 20 Meq Tab.Er) 40 meq PO ONETIME ONE Stop: 08/18/21 07:47 Last Admin: 08/18/21 08:53 Dose: 40 meq Documented by: Potassium Chloride (Potassium Chloride 20 Meq Tab.Er) 40 meq PO ONETIME ONE Stop: 08/19/21 07:58 Last Admin: 08/19/21 08:25 Dose: 40 meq Documented by: Simvastatin (Simvastatin 10 Mg Tab) 10 mg PO BEDTIME [facility] Comments:: Patient lying in bed, awake, alert, pleasant, interactive. Note that the patient is mildly anxious - Exam Quality Assessment: Reports: Supplemental Oxygen, DVT Prophylaxis General: Reports: Alert, Oriented, Cooperative, Mild Distress HEENT: Reports: EOMI Neck: Reports: Supple Lungs: Reports: Crackles Cardiovascular: Reports: Regular Rate, Regular Rhythm, No Murmurs GI/Abdominal Exam: Normal Bowel Sounds, Soft, Tender Back Exam: Reports: Normal Inspection Extremities: Pedal Edema Skin: Reports: Warm, Dry, Intact Neurological: Reports: No New Focal Deficit Psy/Mental Status: Reports: Alert, Anxious
== END 2021-08-19 18:55 | DRG 814 ==
LOC: FB.ED 12:59 → FB.MS 21:50 → UNDOADMOB 21:50 → FB.MS 21:57 → UNDODISOB 23:35 → OBSVTOIN 08-19 09:30
PROVIDERS: ADMIT Emergency Medicine; ATTEND Student in an Organized Health Care Education/Training Program
DX: D73.5 Infarction of spleen (principal); U07.1 COVID-19; J12.82 Pneumonia due to coronavirus disease 2019; N28.0 Ischemia and infarction of kidney; Z68.41 Body mass index [BMI] 40.0-44.9, adult; I10 Essential (primary) hypertension; E66.01 Morbid (severe) obesity due to excess calories; E87.6 Hypokalemia; H54.7 Unspecified visual loss; H91.90 Unspecified hearing loss, unspecified ear; G47.30 Sleep apnea, unspecified; K21.9 Gastro-esophageal reflux disease without esophagitis; K58.9 Irritable bowel syndrome, unspecified; M19.90 Unspecified osteoarthritis, unspecified site; G89.29 Other chronic pain; M79.7 Fibromyalgia; M54.9 Dorsalgia, unspecified; F41.9 Anxiety disorder, unspecified; F32.A Depression, unspecified; E11.9 Type 2 diabetes mellitus without complications; F17.210 Nicotine dependence, cigarettes, uncomplicated; Z20.822 Contact with and (suspected) exposure to COVID-19; Z87.898 Personal history of other specified conditions; Q05.9 Spina bifida, unspecified; Z79.899 Other long term (current) drug therapy; Z79.84 Long term (current) use of oral hypoglycemic drugs; Z86.010 Personal history of colon polyps; Z86.16 Personal history of COVID-19; Z86.19 Personal history of other infectious and parasitic diseases; Z90.49 Acquired absence of other specified parts of digestive tract; Z90.89 Acquired absence of other organs; Z90.710 Acquired absence of both cervix and uterus
CPT/HCPCS: 36415; 71045; 73706-50; 74018; 74174; 80048; 80053; 81001; 83735; 85025; 85610; 85730; 86140; 93005; 96374; 96375; 99285-25; A9270-GY; J1170; J1650; J1885; J2270; J2405; J2765; J3475; J7030; Q9967; U0002